=== PATIENT | male | born 1935 | race Caucasian/White ===

== ENCOUNTER → 2019-01-10 16:56 | Outpatient (CLI) | payer MEDICARE, SELFPAY ==
--- NOTE | 2019-01-10 | DI.RAD.S_ITS ---
PROCEDURE: XR SHOULDER LT MIN 2V INDICATIONS: shoulder pain TECHNIQUE: 2 views of the shoulder were acquired. COMPARISON: [facility], CR, XR SHOULDER RT MIN 2V, 01/10/2019, 17:07. FINDINGS: Bones: Mild to moderate left acromioclavicular joint and glenohumeral joint osteoarthritis is seen. No fractures or dislocations. No suspicious bony lesions. Visualized ribs appear intact. Soft tissues: No suspicious soft tissue calcifications. IMPRESSION: Mild to moderate left shoulder joint osteoarthritis. Dictated by: Diaz Renner M.D. on 01/10/2019 at 17:34 Approved by: Diaz Renner M.D. on 01/10/2019 at 17:35
--- NOTE | 2019-01-10 | DI.RAD.S_ITS ---
PROCEDURE: XR SHOULDER RT MIN 2V INDICATIONS: shoulder pain TECHNIQUE: 2 views of the shoulder were acquired. COMPARISON: None. FINDINGS: Bones: No fractures or dislocations. Moderate osteoarthritic changes are noted in the acromioclavicular joint and glenohumeral joint. No suspicious bony lesions. Visualized ribs appear intact. Soft tissues: No suspicious soft tissue calcifications. IMPRESSION: Moderate right shoulder joint osteoarthritis. No fracture or dislocation. Dictated by: Diaz Renner M.D. on 01/10/2019 at 17:34 Approved by: Diaz Renner M.D. on 01/10/2019 at 17:34
== END ==
PROVIDERS: Visit Provider Internal Medicine
DX: M25.511 Pain in right shoulder (principal); M25.512 Pain in left shoulder; M19.011 Primary osteoarthritis, right shoulder; M19.012 Primary osteoarthritis, left shoulder
CPT/HCPCS: 73030

== ENCOUNTER → 2019-06-27 14:52 | Outpatient (ROUT) | payer MEDICARE, SELFPAY ==
[2019-06-27 15:25] LABS: Alanine Aminotransferase 28 IU/L (<50); Albumin 4.4 g/dL (3.5-5.0); Albumin Globulin Ratio 1.7 (1.0-2.8); Alkaline Phosphatase 78 U/L (38-126); Aspartate Aminotransferase 33 IU/L (17-59); Bilirubin Total 0.8 mg/dL (0.2-1.3); Blood Urea Nitrogen 18 mg/dL (9-20); Calcium 10.1 mg/dL (8.4-10.2); Carbon Dioxide 32 mmol/L (22-32); Chloride 102 mmol/L (98-107); Cholesterol 149 mg/dL (140-199); Estimated Glomerular Filt Rate > 60.0 mL/min (>60); Globulin 2.6 g/dL (1.7-4.1); Glucose 103 mg/dL (80-110); HDL Cholesterol 39 mg/dL (40-60); HEMOLYSIS < 15 (0-50); LDL Cholesterol Calculated 70 mg/dL (<100); Potassium 4.2 mmol/L (3.4-5.1); Sodium 142 mmol/L (137-145); Triglycerides 201 mg/dL (35-150)
[2019-06-27 15:55] LABS: TSH w/ Reflex to FT4 1.37 uIU/mL (0.47-4.68)
== END ==
PROVIDERS: Visit Provider Internal Medicine
DX: E03.9 Hypothyroidism, unspecified (principal); I10 Essential (primary) hypertension; E78.2 Mixed hyperlipidemia
CPT/HCPCS: 80053; 80061; 84443

== ENCOUNTER → 2020-10-12 10:47 | Outpatient (CLI) | payer MEDICARE, SELFPAY ==
--- NOTE | 2020-10-12 10:50 | DI.MRI.S_ITS ---
PROCEDURE: MR THORACIC SPINE WO CON INDICATIONS: Spinal stenosis, lumbar region without neurogenic TECHNIQUE: Noncontrast sagittal T1 spine echo and T2 fast spin echo, sagittal STIR, axial T1 and T2 fast spin echo through the thoracic spine. COMPARISON: None. FINDINGS: Image quality: Excellent. Alignment and Curvature: There is normal bony alignment except for mild grade 1 anterolisthesis of C7 on T1. Minimal degenerative changes are present over the thoracic spine from T1 through T 6. At T6-T7 through T10-T11 there is a progressively greater degree of degenerative disc disease with slight posterior midline disc bulging. At T10-T11 on the sagittal imaging there is a left paramedian posterior disc herniation extruding from the disc annulus and directed cephalad. This measures 8 mm transverse, 7 mm AP, and has a craniocaudad dimension of 1.6 cm. This produces significant asymmetric left-sided spinal stenosis, deviating the thoracic cord somewhat rightward.. Bone Marrow: Marrow is of normal overall signal over the upper and middle thirds of the thoracic spine but at T11 and T12 there is mild elevated fluid signal seen on sagittal STIR imaging, series 6, image 7, and this is associated with mild elevated fluid signal within the T11-T12 disc space. Paravertebral edema is not associated. . No acute vertebral body compression fractures. Spinal Cord: Visualized spinal cord is normal in size and signal. Paraspinous Soft Tissues: No paravertebral masses. Miscellaneous: On axial images, central canal and foramina appear widely patent at all scanned levels. IMPRESSION: The degenerative changes over the upper and middle thirds of the thoracic spine are mild to moderate in overall severity without disc herniation or definite spinal/foraminal stenosis. At T10-T11 there is a moderately large disc herniation measuring approximately 7 x 8 x 16 mm in maximal AP, transverse and craniocaudad dimensions. Asymmetric left-sided symptomatology would be expected. The marrow signal at T11 and T12 is mildly elevated on STIR imaging, and there is a mild degree of elevated fluid signal within the T11-T12 disc space. As noted above there is no paravertebral edema and the appearance is considered most likely degenerative in origin. Please continue to monitor the patient for unusual symptomatology and early evidence of possible discitis/osteomyelitis which is a potential alternative etiology for the appearance described. This is considered unlikely but follow-up clinically is recommended. Dictated by: Shen Pichardo M.D. on 10/12/2020 at 13:41 Approved by: Shen Pichardo M.D. on 10/12/2020 at 13:56
--- NOTE | 2020-10-12 10:50 | DI.MRI.S_ITS ---
PROCEDURE: MR LUMBAR SPINE WO CON INDICATIONS: Spinal stenosis, lumbar region without neurogenic TECHNIQUE: Noncontrast sagittal T1 spin echo and T2 fast echo, sagittal STIR, axial T1 and T2 fast spin echo through the lumbar spine. In cases with scoliosis, additional coronal T2 fast spin echo may be performed. COMPARISON: None. FINDINGS: Image quality: Excellent. Alignment and Curvature: Dextroscoliosis. Bone Marrow: Postsurgical change related to T12-L5 posterior spinal fixation. Posterior decompression seen at the level of L1-L4 There is chronic osseous fusion of the L1-L2 and L2-L3 vertebral bodies. Severe disc degeneration at the remaining spinal levels. Mild anterior wedging of the T11 and T12 vertebral bodies without marrow edema. Spinal Cord: Conus medullaris terminates at the L1 level. Visualized cord demonstrates normal signal and size. 5 mm nodular focus seen in the region of the cauda equina at the level of L3-L4 image 10/2. Recommend further evaluation with contrast enhanced study. Paraspinous Soft Tissues: T2 hyperintense presumed right renal cyst although technically nonspecific. T10-T11 severe canal stenosis. Bilateral severe foraminal narrowing also noted with nerve root compression T11-T12 mild canal narrowing. Mild to moderate bilateral foraminal stenoses. T12-L1: Mild central canal narrowing. Partial effacement of both lateral recesses with bilaterally symmetric appearance. Mild to moderate bilateral foraminal stenosis, partially obscured by spinal hardware. L1-L2: No residual canal narrowing. Moderate bilateral foraminal stenosis although partially obscured by spinal hardware artifact. L2-L3: No canal stenosis identified. Probably mild to moderate bilateral foraminal stenosis however largely obscured by spinal hardware artifact. L3-L4: No canal stenosis. Mild bilateral foraminal narrowing although limited evaluation due to hardware artifact. L4-L5: Mild canal narrowing. Moderate bilateral foraminal stenoses. L5-S1: Mild canal narrowing. Moderate bilateral foraminal stenoses. IMPRESSION: Extensive postsurgical and degenerative changes as above. Dextroscoliosis. Severe canal stenosis seen at T10-T11. No residual high-grade stenosis seen in the lumbar spine. Nodular focus seen at the level of L3-L4 in the region of the cauda equina. Recommend further evaluation with dedicated contrast enhanced lumbar spine MRI to assess for neoplasm. At minimum, continued long-term surveillance is recommended to document stability. Numerous bilateral foraminal stenosis as detailed above by spinal level. Dictated by: Johnson Cunningham M.D. on 10/12/2020 at 15:13 Approved by: Johnson Cunningham M.D. on 10/12/2020 at 15:24
== END ==
PROVIDERS: PCP Internal Medicine; Referring Provider Internal Medicine; Visit Provider Internal Medicine
DX: M48.061 Spinal stenosis, lumbar region without neurogenic claudication (principal); M48.07 Spinal stenosis, lumbosacral region; M48.04 Spinal stenosis, thoracic region; M47.814 Spondylosis without myelopathy or radiculopathy, thoracic region; M51.24 Other intervertebral disc displacement, thoracic region; M41.9 Scoliosis, unspecified; Z98.1 Arthrodesis status
CPT/HCPCS: 72146; 72148

== ENCOUNTER 2024-05-13 15:47 | Inpatient (IN) | payer MEDICARE, SELFPAY ==
[2024-05-13 15:54] VITALS: PULSE 85; RESP 24; O2SAT 93
--- NOTE | 2024-05-13 15:59 | DI.RAD.S_ITS ---
PROCEDURE: XR HIP W PEL IF DONE LT 2V INDICATIONS: fall, hip pain TECHNIQUE: AP pelvis with lateral view(s) of the left hip. COMPARISON: None. FINDINGS: Bones: No dislocations. Pelvic ring appears intact. No suspicious bony lesions. There is a subcapital femoral neck fracture impacted and angulated, acute in appearance. A right-sided total hip arthroplasty has been performed as has prior low lumbosacral spine fusion partially visualized Soft tissues: The visualized bowel gas pattern is normal. No suspicious soft tissue calcifications. IMPRESSION: Acute subcapital femoral neck fracture on the left, prior right total hip arthroplasty. Dictated by: Shen Pichardo M.D. on 05/13/2024 at 16:34 Approved by: Shen Pichardo M.D. on 05/13/2024 at 16:36
[2024-05-13 16:00] VITALS: BP 119/60; BP 128/58; PULSE 83; PULSE 85; RESP 16; RESP 23; TEMP 36.8; O2SAT 93; O2SAT 96
--- NOTE | 2024-05-13 16:09 | ED.FALL ---
HPI - Fall General Chief Complaint: Fall Stated Complaint: Hip px, no BM x9 days Time Seen by Provider: 05/13/24 15:55 Source: patient, EMS, RN notes reviewed, old records reviewed and other (Caregiver) Mode of arrival: EMS Limitations: no limitations History of Present Illness HPI Narrative: 88-year-old male history of hypertension, dyslipidemia on an aspirin daily who presents with complaint of left hip pain. Patient had a fall after being hit by a car door falling onto his left hip proximally 9 days ago. States he was seen at [facility] like he had x-rays was told it was not broken discharged home but states he has been able to weightbear on it since then. Patient states he is pain with any sort of movement and will have spasm at the site as well. Denies any numbness or tingling. He denies other injuries denies hitting his, denies neck or back pain. Patient any chest pain or shortness of breath. No nausea or vomiting. Has not had a bowel movement at least 2 days, according to his caregiver 9 days but patient states she was not there when he had his last bowel movement. States he has been urinating regularly but had to use a container as he can not get to the bathroom. Home medications include venlafaxine, lisinopril, statin, aspirin daily. Patient has had prior right hip repair. Has also had cardiac stents in the past. Former smoker, one alcoholic drink daily, no recreational drugs. Patient lives at home with his but does have a caregiver who is at bedside. Patient's primary care is Shraddha Cabrera. Related Data Home Medications Medication Instructions Recorded Confirmed atorvastatin 40 mg tablet 40 mg PO BEDTIME 05/13/24 05/13/24 levothyroxine 88 mcg capsule 88 mcg PO DAILY 05/13/24 05/13/24 lisinopril 20 1 tab PO DAILY 05/13/24 05/13/24 mg-hydrochlorothiazide 25 mg tablet metoprolol succinate 50 mg capsule 50 mg PO DAILY 05/13/24 05/13/24 sprinkle, ext. release 24 hr venlafaxine 150 mg 150 mg PO DAILY 05/13/24 05/13/24 capsule,extended release 24 hr Allergies Allergy/AdvReac Type Severity Reaction Status Date / Time adhesive tape [ADHESIVE TAPE] AdvReac Mild ITCHY Verified 05/13/24 16:10 BUMPS Review of Systems Review of Systems ROS Unobtainable: All systems reviewed & are unremarkable except as noted in HPI and below Patient History Social History household members: spouse and caregiver Smoking Status: Former smoker alcohol intake: current Exam Narrative Exam Narrative: GENERAL: Alert and oriented x three, elderly male in mild distress HEENT: Head normocephalic, atraumatic, EOMI, pupils reactive, face symmetric, moist mucous membranes NECK: Supple, full range of motion CARDIOVASCULAR: Regular rate and rhythm without murmurs, rubs or gallops. RESPIRATORY: Breath sounds equal bilaterally, no wheezes rales or rhonchi. ABDOMEN: Soft, nontender. Normoactive bowel sounds all 4 quadrants. No guarding or rebound, rigidity, no mass : No CVA tenderness EXTREMITIES: Decreased range of motion of the left hip, patient has tenderness over the greater troch, pain with passive movement or attempted active movement. No bony tenderness of the femur knee lower extremity or foot. Left leg does look a little bit shortened in his slightly externally rotated. 2+ dorsalis pedis bilaterally. Sensation to light touch to both lower extremities., no clubbing or edema. Neurovascularly intact. NEUROLOGICAL: Cranial nerves II through XII grossly intact. Moving all extremities SKIN: Warm, dry, no petechiae, no rashes or lesions. Initial Vital Signs Initial Vital Signs: Vital Signs Pulse Rate 85 05/13/24 15:54 Respiratory Rate 24 05/13/24 15:54 Pulse Oximetry 93 05/13/24 15:54 Course Orders Ordered: Acetaminophen (Acetaminophen 325 Mg Tablet) 650 mg PO Q6H PRN PRN Reason: Fever/Mild Pain (1-3) Last Admin: 05/17/24 18:07 Dose: 650 mg Documented By: Admin: 05/17/24 06:23 Dose: 650 mg Documented By: Admin: 05/15/24 15:27 Dose: 650 mg Documented By: Admin: 05/15/24 08:00 Dose: 650 mg Documented By: Admin: 05/14/24 20:19 Dose: 650 mg Documented By: Admin: 05/14/24 12:18 Dose: 650 mg Documented By: CALVIN Atorvastatin Calcium (Atorvastatin 20 Mg Tablet) 40 mg PO BEDTIME [facility] Last Admin: 05/17/24 20:06 Dose: 40 mg Documented By: Admin: 05/16/24 21:20 Dose: 40 mg Documented By: Admin: 05/15/24 20:02 Dose: 40 mg Documented By: Admin: 05/14/24 20:19 Dose: 40 mg Documented By: Admin: 05/13/24 20:32 Dose: 40 mg Documented By: SUMA Bisacodyl (Bisacodyl 10 Mg Supp) 10 mg CA BID PRN PRN Reason: Constipation Last Admin: 05/16/24 10:07 Dose: 10 mg Documented By: Admin: 05/15/24 18:12 Dose: 10 mg Documented By: DEANNE Docusate Sodium (Docusate 100 Mg Capsule) 100 mg PO BID [facility] Last Admin: 05/17/24 20:06 Dose: 100 mg Documented By: Admin: 05/17/24 09:39 Dose: 100 mg Documented By: Admin: 05/16/24 21:19 Dose: 100 mg Documented By: Admin: 05/16/24 09:56 Dose: 100 mg Documented By: Admin: 05/15/24 20:03 Dose: 100 mg Documented By: Admin: 05/15/24 08:08 Dose: 100 mg Documented By: Admin: 05/14/24 20:19 Dose: 100 mg Documented By: SUMA Enoxaparin Sodium (Enoxaparin 40 Mg/0.4 Ml Syringe) 40 mg SUBCUT DAILY [facility] Last Admin: 05/17/24 09:39 Dose: 40 mg Documented By: Admin: 05/16/24 09:57 Dose: 40 mg Documented By: Admin: 05/15/24 08:08 Dose: 40 mg Documented By: CALVIN Hydrochlorothiazide (Hydrochlorothiazide 25 Mg Tablet) 25 mg PO DAILY [facility] Last Admin: 05/17/24 09:43 Dose: Not Given Documented By: Admin: 05/16/24 14:13 Dose: Not Given Documented By: Admin: 05/15/24 08:08 Dose: 25 mg Documented By: Admin: 05/14/24 12:17 Dose: 25 mg Documented By: CALVIN Lactated Ringer's (Lactated Ringers) 1,000 mls @ 100 mls/hr IV CONT [facility] Last Admin: 05/14/24 21:18 Dose: 100 mls/hr Documented By: Infusion: 05/14/24 21:18 Dose: Infused Documented By: Admin: 05/14/24 12:16 Dose: 100 mls/hr Documented By: CALVIN Levothyroxine Sodium (Levothyroxine 88 Mcg Tablet) 88 mcg PO 0600 [facility] Last Admin: 05/18/24 05:05 Dose: 88 mcg Documented By: Admin: 05/17/24 06:23 Dose: 88 mcg Documented By: Admin: 05/16/24 05:35 Dose: 88 mcg Documented By: Admin: 05/15/24 05:20 Dose: 88 mcg Documented By: Admin: 05/14/24 05:38 Dose: 88 mcg Documented By: SUMA Lisinopril (Lisinopril 20 Mg Tablet) 20 mg PO DAILY [facility] Last Admin: 05/17/24 09:43 Dose: Not Given Documented By: Admin: 05/16/24 14:13 Dose: Not Given Documented By: Admin: 05/15/24 08:10 Dose: 20 mg Documented By: Admin: 05/14/24 12:18 Dose: 20 mg Documented By: CALVIN Magnesium Hydroxide (Magnesium Hydroxide 30 Ml Udc) 30 ml PO Q6H PRN PRN Reason: Constipation Last Admin: 05/15/24 18:24 Dose: 30 ml Documented By: DEANNE Metoprolol Succinate (Metoprolol Er 50 Mg Tablet) 50 mg PO DAILY [facility] Last Admin: 05/17/24 09:43 Dose: Not Given Documented By: Admin: 05/16/24 09:56 Dose: 50 mg Documented By: Admin: 05/15/24 08:09 Dose: 50 mg Documented By: Admin: 05/14/24 12:17 Dose: 50 mg Documented By: CALVIN Naloxone HCl (Naloxone 0.4 Mg/Ml Vial) 0.2 mg IV Q2MIN PRN PRN Reason: Opiate Reversal Naloxone HCl (Naloxone 0.4 Mg/Ml Vial) 0.2 mg IV Q2MIN PRN PRN Reason: Opiate Reversal Ondansetron HCl (Ondansetron 4 Mg/2 Ml Inj) 4 mg IV Q4HR PRN PRN Reason: Nausea And Vomiting Ondansetron HCl (Ondansetron 4 Mg Odt) 4 mg PO Q4HR PRN PRN Reason: Nausea Polyethylene Glycol (Polyethylene Glycol 3350 17 Gm Powd.Pack) 17 gm PO DAILY PRN PRN Reason: Constipation Last Admin: 05/15/24 08:08 Dose: 17 gm Documented By: Admin: 05/14/24 20:20 Dose: 17 gm Documented By: SUMA Tramadol HCl (Tramadol 50 Mg Tablet) 50 mg PO QID PRN PRN Reason: Pain, Moderate (4-6) Last Admin: 05/17/24 18:08 Dose: 50 mg Documented By: Admin: 05/17/24 09:39 Dose: 50 mg Documented By: Admin: 05/16/24 21:18 Dose: 50 mg Documented By: Admin: 05/16/24 09:56 Dose: 50 mg Documented By: Admin: 05/15/24 23:33 Dose: 50 mg Documented By: Admin: 05/15/24 15:28 Dose: 50 mg Documented By: DEANNE Venlafaxine HCl (Venlafaxine Er 75 Mg Cap) 150 mg PO DAILY [facility] Last Admin: 05/17/24 09:40 Dose: 150 mg Documented By: Admin: 05/16/24 09:56 Dose: 150 mg Documented By: Admin: 05/15/24 08:08 Dose: 150 mg Documented By: Admin: 05/14/24 12:17 Dose: 150 mg Documented By: CALVIN Discontinued Medications Bupivacaine Liposome (Bupivacaine Liposome 266 Mg/20 Ml Vial) 266 mg INJ NOW ONE Stop: 05/14/24 08:56 Last Admin: 05/14/24 08:56 Dose: 266 mg Documented By: SULAIMAN Bupivacaine HCl 30 ml/ (Epinephrine HCl 0.15 mg) 0 ml INJ NOW ONE Stop: 05/14/24 08:57 Last Admin: 05/14/24 08:56 Dose: 60 ml Documented By: SULAIMAN Diphenhydramine HCl (Diphenhydramine 25 Mg Tablet) 25 mg PO Q6HR PRN PRN Reason: Itching Fentanyl (Fentanyl 100 Mcg/2 Ml Inj) 0 mcg IV Q5MIN PRN PRN Reason: Pain, Severe (7-10) Fentanyl (Fentanyl 100 Mcg/2 Ml Inj) 0 mcg IV Q5M PRN PRN Reason: Pain, Moderate (4-6) Hydromorphone HCl (Hydromorphone 1 Mg Inj) 0 mg IV Q5MIN PRN PRN Reason: Pain, Mild (1-3) Hydromorphone HCl (Hydromorphone 1 Mg Inj) 0 mg IV Q5MIN PRN PRN Reason: Pain, Moderate (4-6) Hydromorphone HCl (Hydromorphone 1 Mg Inj) 0 mg IV Q5MIN PRN PRN Reason: Pain, Severe (7-10) Hydromorphone HCl (Hydromorphone 0.5 Mg Inj) 0.5 mg IV Q2H PRN PRN Reason: Pain, Severe (7-10) Last Admin: 05/15/24 02:01 Dose: 0.5 mg Documented By: SUMA Hydroxyzine HCl (Hydroxyzine Hcl 25 Mg Tablet) 25 mg PO Q6H PRN PRN Reason: Nausea Last Admin: 05/14/24 21:40 Dose: 25 mg Documented By: SUMA Lactated Ringer's (Lactated Ringers) 1,000 mls @ 42 mls/hr IV NOW ONE Stop: 05/15/24 07:31 Last Infusion: 05/14/24 10:26 Dose: Infused Documented By: Admin: 05/14/24 08:54 Dose: 42 mls/hr Documented By: Infusion: 05/14/24 08:54 Dose: Infused Documented By: Admin: 05/14/24 07:44 Dose: 42 mls/hr Documented By: TILA Cefazolin Sodium/Dextrose (Ancef) 100 mls @ 200 mls/hr IV NOW ONE Stop: 05/14/24 09:30 Last Infusion: 05/14/24 08:29 Dose: Infused Documented By: Admin: 05/14/24 08:00 Dose: 200 mls/hr Documented By: GARRET Cefazolin Sodium/Dextrose (Ancef) 100 mls @ 200 mls/hr IV Q8H SAADIA Stop: 05/15/24 00:29 Last Infusion: 05/15/24 01:11 Dose: Infused Documented By: Admin: 05/15/24 00:00 Dose: 200 mls/hr Documented By: Infusion: 05/14/24 23:20 Dose: Infused Documented By: Admin: 05/14/24 17:05 Dose: 200 mls/hr Documented By: CALVIN Morphine Sulfate (Morphine 2 Mg/Ml Inj) 2 mg IV NOW ONE Stop: 05/13/24 16:06 Last Admin: 05/13/24 16:41 Dose: 2 mg Documented By: MEL Morphine Sulfate (Morphine 4 Mg/Ml Inj) 2 mg IV Q2HR PRN PRN Reason: Pain, Moderate (4-6) Last Admin: 05/14/24 23:58 Dose: 2 mg Documented By: Admin: 05/14/24 03:25 Dose: 2 mg Documented By: SUMA Ondansetron HCl (Ondansetron 4 Mg/2 Ml Inj) 4 mg IV NOW PRN PRN Reason: Nausea And Vomiting Oxycodone HCl (Oxycodone Ir 5 Mg Tablet) 5 mg PO Q3H PRN PRN Reason: Pain, Moderate (4-6) Last Admin: 05/15/24 07:59 Dose: 5 mg Documented By: Admin: 05/14/24 21:13 Dose: 5 mg Documented By: Admin: 05/14/24 15:45 Dose: 5 mg Documented By: CALVIN Oxycodone HCl (Oxycodone Ir 10 Mg Tablet) 10 mg PO Q3H PRN PRN Reason: Pain, Severe (7-10) Oxycodone/Acetaminophen (Oxycodone/Acetaminophen 5/325 Tablet) 1 tab PO [place] PRN PRN Reason: Mild or Moderate Pain Tranexamic Acid (Tranexamic Acid 1,000 Mg Vial) 2,000 mg INJ NOW ONE Stop: 05/14/24 08:58 Last Admin: 05/14/24 09:39 Dose: 1,000 mg Documented By: Admin: 05/14/24 08:15 Dose: 1,000 mg Documented By: GARRET Vital Signs Vital signs: Vital Signs - 8 hr 05/13/24 16:00 Temperature 98.3 F Pulse Rate 85 Respiratory Rate 16 Blood Pressure 119/60 Pulse Oximetry 96 Oxygen Delivery Method Room Air MDM - Fall Lab Data 05/15/24 09:15 05/14/24 13:55 Labs: Lab Results 05/13/24 Range/Units 16:17 WBC 9.4 (4.5-11.0) X10^3/uL RBC 3.89 L (4.5-5.9) X10^6/uL Hgb 13.0 L (13.5-17.5) g/dL Hct 36.9 L (41-53) % MCV 94.9 (80-100) fL MCH 33.4 (26-34) PG MCHC 35.2 (30-36) % RDW 13.8 (11.6-14.8) % Plt Count 249 (150-400) X10^3/uL Neut % (Auto) 63.6 (50-75) % Lymph % (Auto) 21.6 L (25-40) % [place] % (Auto) 11.4 (3-14) % Eos % (Auto) 2.9 (2-4) % Baso % (Auto) 0.5 (0-2) % Neut # (Auto) 6000 (0480-7535) /uL Lymph # (Auto) 2000 (7900-5900) /uL [place] # (Auto) 1100 H (0-900) /uL Eos # (Auto) 300 (0-450) /uL Baso # (Auto) 100 (0-100) /uL Sodium 132 L (137-145) mmol/L Potassium 3.9 (3.4-5.1) mmol/L Chloride 102 (98-107) mmol/L Carbon Dioxide 22 (22-32) mmol/L BUN 25 H (9-20) mg/dL Creatinine 1.09 (0.66-1.25) mg/dL Estimated GFR > 60 (>60) mL/min BUN/Creatinine Ratio 22.9 H (6-22) Glucose 124 H (80-110) mg/dL Calcium 9.6 (8.4-10.2) mg/dL Total Bilirubin 0.6 (0.2-1.3) mg/dL AST 29 (17-59) IU/L ALT 25 (<50) IU/L Alkaline Phosphatase 71 (38-126) U/L Total Protein 6.8 (6.3-8.2) g/dL Albumin 3.8 (3.5-5.0) g/dL Globulin 3.0 (1.7-4.1) g/dL Albumin/Globulin Ratio 1.3 (1.0-2.8) Imaging Data Extremity x-ray #1: Radiologist's Impression: Sudhir Beard??88??M??1935 ? Allergy/Adv: adhesive tape Close Head CT (Signed) Dick Herrera - 05/15/24 Pelvis X-Ray (Signed) HerreraDick wing - 05/14/24 Pelvis X-Ray (Signed) Herrera,Dick - 05/14/24 Hip X-Ray (Signed) Shen Pichardo - 05/13/24 Thoracic Spine MRI (Signed) Shen Pichardo - 10/12/20 Lumbar Spine MRI (Signed) Johnson Cunningham - 10/12/20 Shoulder X-Ray (Signed) Diaz Renner - 01/10/19 Shoulder X-Ray (Signed) Diaz Renner - 01/10/19 [address] [address] XRay Report Signed Patient: Sudhir Beard MR#: [id number] : 1935 Acct:[id number] Age/Sex: 88 / M Date of Service: 05/13/24 Loc: ED Accession Number: [id number] Procedure: XR hip w pel if done LT 2V Ordering Provider: Adia Carbajal D.O. PROCEDURE: XR HIP W PEL IF DONE LT 2V INDICATIONS: fall, hip pain TECHNIQUE: AP pelvis with lateral view(s) of the left hip. COMPARISON: None. FINDINGS: Bones: No dislocations. Pelvic ring appears intact. No suspicious bony lesions. There is a subcapital femoral neck fracture impacted and angulated, acute in appearance. A right-sided total hip arthroplasty has been performed as has prior low lumbosacral spine fusion partially visualized Soft tissues: The visualized bowel gas pattern is normal. No suspicious soft tissue calcifications. IMPRESSION: Acute subcapital femoral neck fracture on the left, prior right total hip arthroplasty. Dictated by: Shen Pichardo M.D. on 05/13/2024 at 16:34 Approved by: Shen Pichardo M.D. on 05/13/2024 at 16:[address] [facility] Narrative Medical decision making narrative: 88-year-old male with ground level fall approximately 9 days ago has had persistent pain since then but unable to weightbear. X-ray of left hip shows what appears to be an impacted left humeral neck fracture. Labs white count 9.4 hemoglobin of 13, prior was 15 in 2017, platelets are 249. Sodium is 132 potassium 3.9 chloride 102 CO2 22 with a BUN 25 creatinine 1.09 glucose is 124 LFTs are negative. Spoke with orthopedic surgery Dr. Guajardo, reviewed images, patient had pizza noodles at noon so we will have to push back his OR till tomorrow. Spoke with Dr. Ernandez, hospitalist who accepts for admission. Discharge Plan Departure Patient Disposition: Admitted As Inpatient Clinical Impression: Closed left hip fracture Qualifiers: Encounter type: initial encounter Qualified Code(s): S72.002A - Fracture of unspecified part of neck of left femur, initial encounter for closed fracture Admit Date/Time: 05/13/24 16:47 Admit Provider: Noé Ernandez
[2024-05-13 16:26] LABS: Add Manual Diff / Slide Review NO; Basophils Absolute Auto 100 /uL (0-100); Basophils Percent Auto 0.5 % (0-2); Eosinophils Absolute Auto 300 /uL (0-450); Eosinophils Percent Auto 2.9 % (2-4); Hematocrit 36.9 % (41-53); Lymphocytes Absolute Auto 2000 /uL (1100-4500); Lymphocytes Percent Auto 21.6 % (25-40); Mean Corpuscular HGB Conc 35.2 % (30-36); Mean Corpuscular Hemoglobin 33.4 PG (26-34); Mean Corpuscular Volume 94.9 fL (80-100); Monocytes Absolute Auto 1100 /uL (0-900); Monocytes Percent Auto 11.4 % (3-14); Neutrophils Absolute Auto 6000 /uL (1500-7000); Neutrophils Percent Auto 63.6 % (50-75); Platelet Count 249 X10^3/uL (150-400); Red Blood Cell Count 3.89 X10^6/uL (4.5-5.9); Red Cell Distribution Width 13.8 % (11.6-14.8); White Blood Cell Count 9.4 X10^3/uL (4.5-11.0)
[2024-05-13 16:30] VITALS: BP 104/70; PULSE 80; O2SAT 95
[2024-05-13 16:40] LABS: Alanine Aminotransferase 25 IU/L (<50); Albumin 3.8 g/dL (3.5-5.0); Albumin Globulin Ratio 1.3 (1.0-2.8); Alkaline Phosphatase 71 U/L (38-126); Aspartate Aminotransferase 29 IU/L (17-59); BUN Creatinine Ratio 22.9 (6-22); Bilirubin Total 0.6 mg/dL (0.2-1.3); Blood Urea Nitrogen 25 mg/dL (9-20); Calcium 9.6 mg/dL (8.4-10.2); Carbon Dioxide 22 mmol/L (22-32); Chloride 102 mmol/L (98-107); Estimated Glomerular Filt Rate > 60 mL/min (>60); Glucose 124 mg/dL (80-110); HEMOLYSIS < 15 (0-50); Potassium 3.9 mmol/L (3.4-5.1); Sodium 132 mmol/L (137-145); Total Protein 6.8 g/dL (6.3-8.2)
[2024-05-13] MEDS: MORPHINE 2 MG/ML INJ IV (16:41)
[2024-05-13 17:00] VITALS: BP 122/64; PULSE 76; RESP 22; O2SAT 93
--- NOTE | 2024-05-13 17:26 | P.HP_ITS ---
History of Present Illness History of Present Illness Date Patient Seen: 05/13/24 Chief complaint: Hip px, no BM x9 days Narrative: From ED doctor: 88-year-old male history of hypertension, dyslipidemia on an aspirin daily who presents with complaint of left hip pain. Patient had a fall after being hit by a car door falling onto his left hip proximally 9 days ago. States he was seen at [facility] sounds like he had x-rays was told it was not broken discharged home but states he has been able to weightbear on it since then. Patient states he is pain with any sort of movement and will have spasm at the site as well. Denies any numbness or tingling. He denies other injuries denies hitting his, denies neck or back pain. Patient any chest pain or shortness of breath. No nausea or vomiting. Has not had a bowel movement at least 2 days, according to his caregiver 9 days but patient states she was not there when he had his last bowel movement. States he has been urinating regularly but had to use a container as he can not get to the bathroom. Home medications include venlafaxine, lisinopril, statin, aspirin daily. Patient has had prior right hip repair. Has also had cardiac stents in the past. Former smoker, one alcoholic drink daily, no recreational drugs. Patient lives at home with his but does have a caregiver who is at bedside. Patient's primary care is Shraddha Cabrera. Additional information: As noted, the patient had x-rays at [facility] about 9 days ago which were said to be normal. The patient walked to that visit but has not walked since. Because of persistence of pain and inability to walk he presented today. Radiographs 2 demonstrate a fracture. He denies any dyspnea, leg pain or swelling. Discussed with orthopedics, 5th. He denies any chest pain, or dyspnea. There was some report about constipation, but he was not really mentioned at when I talked to him. He does confirmed DNR status. He denies any issues with nausea or poor appetite recently. He does note that he was walking for several days after his ER visit with normal x-rays of the hip. He denies a 2nd fall. [facility] Social History household members: spouse and caregiver Smoking Status: Former smoker alcohol intake: current Meds Home Medications and Allergies Home Medications Medication Instructions Recorded Confirmed Type atorvastatin 40 mg tablet 40 mg PO BEDTIME 05/13/24 05/13/24 History levothyroxine 88 mcg capsule 88 mcg PO DAILY 05/13/24 05/13/24 History lisinopril 20 1 tab PO DAILY 05/13/24 05/13/24 History mg-hydrochlorothiazide 25 mg tablet metoprolol succinate 50 mg capsule 50 mg PO DAILY 05/13/24 05/13/24 History sprinkle, ext. release 24 hr venlafaxine 150 mg 150 mg PO DAILY 05/13/24 05/13/24 History capsule,extended release 24 hr Allergies Allergy/AdvReac Type Severity Reaction Status Date / Time adhesive tape [ADHESIVE TAPE] AdvReac Mild ITCHY Verified 05/13/24 16:10 BUMPS Review of Systems Review of Systems Narrative: All else reviewed and otherwise unremarkable except as noted in the history and physical. Exam Vital Signs (past 8 hours): - 05/13/24 15:54 05/13/24 16:00 05/13/24 16:00 Temperature 98.3 F Pulse Rate 85 85 Respiratory Rate 24 16 Blood Pressure 119/60 128/58 L Pulse Oximetry 93 96 Oxygen Delivery Method Room Air 05/13/24 16:00 05/13/24 16:30 05/13/24 16:30 Temperature Pulse Rate 83 80 Respiratory Rate 23 Blood Pressure 104/70 Pulse Oximetry 93 95 Oxygen Delivery Method 05/13/24 17:00 05/13/24 17:00 Temperature Pulse Rate 76 Respiratory Rate 22 Blood Pressure 122/64 Pulse Oximetry 93 Oxygen Delivery Method Oxygen Delivery Method Room Air Narrative Exam Narrative: NAD, alert and oriented, fluent speech, calm. Normocephalic skull, EOMI, anicteric sclera, symmetric pupils. Oropharynx unremarkable, no droop. Neck supple, midline trachea, no adenopathy. Lungs clear, normal rate and effort. Heart regular, no murmur gallop or rub. Abdomen is soft, non distended and non tender. Extremities are free of edema. Skin is free of rash or lesions. Joints are not swollen or deformed. Judgment appears to be normal. Right leg is externally rotated. Objective Imaging Hip x-ray:: Radiologist's impression: IMPRESSION: Acute subcapital femoral neck fracture on the left, prior right total hip arthroplasty. Labs 05/13/24 16:17 05/13/24 16:17 Labs: Laboratory Results - last 24 hr 05/13/24 16:17 WBC 9.4 RBC 3.89 L Hgb 13.0 L Hct 36.9 L MCV 94.9 MCH 33.4 MCHC 35.2 RDW 13.8 Plt Count 249 Neut % (Auto) 63.6 Lymph % (Auto) 21.6 L [place] % (Auto) 11.4 Eos % (Auto) 2.9 Baso % (Auto) 0.5 Neut # (Auto) 6000 Lymph # (Auto) 2000 [place] # (Auto) 1100 H Eos # (Auto) 300 Baso # (Auto) 100 Sodium 132 L Potassium 3.9 Chloride 102 Carbon Dioxide 22 BUN 25 H Creatinine 1.09 Estimated GFR > 60 BUN/Creatinine Ratio 22.9 H Glucose 124 H Calcium 9.6 Total Bilirubin 0.6 AST 29 ALT 25 Alkaline Phosphatase 71 Total Protein 6.8 Albumin 3.8 Globulin 3.0 Albumin/Globulin Ratio 1.3 Assessment & Plan Assessment & Plan narrative: 1. Acute left hip fracture, present on admission and active. 2. Hypertension, present on admission stable. 3. Dyslipidemia, present on admission and stable. PLAN: -NPO midnight and operative repair on May 14. -start DVT prophylaxis asked him for surgery. -resume blood pressure medications and monitor blood pressure. Inpatient status, anticipate 2 midnights of medical care in the hospital. DNR is proxy. Time-Based Coding :: 35 min spent with patient and on the chart (including review of chart, obtaining history, exam, reviewing outside data, placing orders, documenting exam and treatment plan, and counseling patient) on 05/13. Quality MIPS - Admit I confirm the patient?s Advance Care Plan is present, Code status is documented, Surrogate decision maker is in patient?s record [If Yes, STOP here]: Yes MIPS - Meds 'Current medications' to include all prescriptions, [id number] products, herbals, cannabis/cannabidiol products, and vitamin/mineral/dietary (nutritional) supplements. I have utilized all available resources to obtain, update, or review the patient?s current medications. [If Yes, STOP here]: Yes
[2024-05-13 17:40] VITALS: BMI 31.4
[2024-05-13 17:54] VITALS: BP 124/77; PULSE 75; RESP 19; TEMP 36.9; O2SAT 98
[2024-05-13 20:00] VITALS: BP 109/72; PULSE 67; RESP 12; TEMP 36.6; O2SAT 94
[2024-05-13] MEDS: ATORVASTATIN 20 MG TABLET 40 MG PO (20:32)
[2024-05-14] VITALS (18 sets, daily range): BP systolic 93–141; BP diastolic 53–82; PULSE 71–95; RESP 11–22; TEMP 36.4–37; O2SAT 90–96; BMI 31.4
[2024-05-14] MEDS: MORPHINE 4 MG/ML INJ 2 MG IV ×2 (03:25→23:58)
[2024-05-14] MEDS: LEVOTHYROXINE 88 MCG TABLET PO (05:38)
--- NOTE | 2024-05-14 07:20 | P.CONS_ITS ---
History of Present Illness Consult details Date Patient Seen: 05/14/24 Time Patient Seen: 07:21 Chief complaint: Hip px, no BM x9 days Reason for consult: Hip fracture Requesting provider: Adia Carbajal Narrative: Sudhir as an 88-year-old male that had a fall approximately 9 days ago when he was hit by the back cardenas door of a car and knocked over. He fell onto his left side and had pain but was able to ambulate. He states the injury happened when he was trying to put a walker in the back of the car. States he sometimes uses a walker for ambulation. He was seen at [facility] for reportedly x-rays were negative. Over the last 9 days things have gotten worse home and he is become unable to ambulate. Per the patient's report he was visited by friends that he knows from the rotary including retired doctors yesterday that stated he needed to go back to the hospital and he was brought to [facility] Emergency room where he was found to have a displaced left femoral neck fracture and admitted to the hospital. He has a history of a right total hip replacement which he states was also for a hip fracture which was done approximately [address] [facility] and [place]. He also has a remote history of lumbar fusion. He states after the right hip repair he had some confusion while in the hospital but denies any history of blood clots or bleeding disorders. He states to me that he makes his own medical decisions. He reports pain in his left groin inability to ambulate. Denies fevers or chills. Denies nausea or vomiting. Meds Home Medications and Allergies Home Medications Medication Instructions Recorded Confirmed Type atorvastatin 40 mg tablet 40 mg PO BEDTIME 05/13/24 05/13/24 History levothyroxine 88 mcg capsule 88 mcg PO DAILY 05/13/24 05/13/24 History lisinopril 20 1 tab PO DAILY 05/13/24 05/13/24 History mg-hydrochlorothiazide 25 mg tablet metoprolol succinate 50 mg capsule 50 mg PO DAILY 05/13/24 05/13/24 History sprinkle, ext. release 24 hr venlafaxine 150 mg 150 mg PO DAILY 05/13/24 05/13/24 History capsule,extended release 24 hr Allergies Allergy/AdvReac Type Severity Reaction Status Date / Time adhesive tape [ADHESIVE TAPE] AdvReac Mild ITCHY Verified 05/13/24 16:10 BUMPS Review of Systems Review of Systems Narrative: Denies fevers chills nausea vomiting endorses left hip pain Per history no BM for at least several days possibly a week Exam Vital Signs (past 8 hours): Oxygen Delivery Method Room Air Oxygen Flow Rate 0 Narrative Exam Narrative: He is alert and oriented. Takes a little time on answers but is able to reply to me with thoughtful answers this morning Lungs clear to auscultation Heart regular rate and rhythm Abdomen is soft Downing in place Right lower extremity demonstrates 5/5 dorsiflexion plantar flexion no pain calf soft Left lower extremity slightly shortened and externally rotated. Demonstrates dorsiflexion plantar flexion of the ankle and wiggles toes. Palpable dorsalis pedis pulse. Calf is soft. SCDs in place on bilateral lower extremities. Pain at the left hip and groin. Objective Imaging X-ray AP pelvis and lateral left hip: My impression: Displaced left femoral neck fracture on the left. Prior right total hip replacement prior lumbar fusion with hardware Labs 05/13/24 16:17 05/13/24 16:17 Labs: Laboratory Results - last 24 hr 05/13/24 16:17 WBC 9.4 RBC 3.89 L Hgb 13.0 L Hct 36.9 L MCV 94.9 MCH 33.4 MCHC 35.2 RDW 13.8 Plt Count 249 Neut % (Auto) 63.6 Lymph % (Auto) 21.6 L [place] % (Auto) 11.4 Eos % (Auto) 2.9 Baso % (Auto) 0.5 Neut # (Auto) 6000 Lymph # (Auto) 2000 [place] # (Auto) 1100 H Eos # (Auto) 300 Baso # (Auto) 100 Sodium 132 L Potassium 3.9 Chloride 102 Carbon Dioxide 22 BUN 25 H Creatinine 1.09 Estimated GFR > 60 BUN/Creatinine Ratio 22.9 H Glucose 124 H Calcium 9.6 Total Bilirubin 0.6 AST 29 ALT 25 Alkaline Phosphatase 71 Total Protein 6.8 Albumin 3.8 Globulin 3.0 Albumin/Globulin Ratio 1.3 PFSH Social History household members: spouse and caregiver Tobacco & Substance Use Smoking Status: Former smoker alcohol intake: current Assessment & Plan Assessment and plan (1) Osteoporotic hip fracture: Qualifiers: Encounter type: initial encounter Laterality: left Qualified Code(s): M80.052A - Age-related osteoporosis with current pathological fracture, left femur, initial encounter for fracture Status: Acute (2) Closed left hip fracture: Qualifiers: Encounter type: initial encounter Qualified Code(s): S72.002A - Fracture of unspecified part of neck of left femur, initial encounter for closed fracture Status: Acute Plan The patient is an 88-year-old male with a displaced left femoral neck fracture. Likely about 9-day-old. I do not have the x-rays from the outside hospital but was possibly nondisplaced and became displaced over time. Today it is a displaced femoral neck fracture. We discussed operative treatment to help avoid the morbidity of prolonged bed rest. We discussed that operative treatment with hemiarthroplasty allowed immediate weight-bearing and mobilization. We discussed risks of surgery which includes risks of dislocation risks of infection risk of blood loss anemia nerve and vascular problems. Also risks of pneumonia DVT PE heart attack stroke paralysis and . We discussed overall the benefits of surgery or thought doubt ray the risks for hip fractures to allow mobilization. Decision for hemiarthroplasty to treat displaced left femoral neck fracture, cemented. Patient does not currently have any signs of deep venous thrombosis. Postoperative DVT prophylaxis will be Lovenox or equivalent x4 weeks. Anticipate likely care home discharge if not adequate mobilization or assistance at home. The risks and benefits of the procedure have been discussed with the patient and given the opportunity to ask questions. The risks of surgery include but are not limited to infection, dislocation, malunion, nonunion, persistence of pain, damage to nerves and blood vessels, posttraumatic arthritis, DVT, PE, cardiopulmonary complications and . The patient expressed a thorough understanding of the risks and benefits of surgery and has elected to proceed. Consent was signed High-level medical decision-making. Major orthopedic surgery. inPatient was admission required. Time-Based Coding :: [TOTAL MINUTES] spent with patient and on the chart (including review of chart, obtaining history, exam, reviewing outside data, placing orders, documenting exam and treatment plan, and counseling patient) on [DATE].
[2024-05-14] MEDS: LACTATED RINGERS 1,000 ML 42 ML IV ×2 (07:44→08:54)
--- NOTE | 2024-05-14 07:47 | PM.OP.1 ---
Operative Date/Time/Diagnoses Date of procedure: 05/14/24 Time of procedure: 07:48 Pre-op diagnosis: Left displaced femoral neck fracture Post-op diagnosis: same Procedure & Clinicians Procedure: Cemented hemiarthroplasty for left fracture CPT code 33062 Same procedure as scheduled: Yes Indications: The patient is an 88-year-old male with a displaced left femoral neck fracture. He is indicated for operative fixation. The risks and benefits of the procedure have been discussed with the patient and given the opportunity to ask questions. The risks of surgery include but are not limited to infection, dislocation, fracture, persistence of pain, damage to nerves and blood vessels, posttraumatic arthritis, DVT, PE, cardiopulmonary complications and . The patient expressed a thorough understanding of the risks and benefits of surgery and has elected to proceed. Consent was signed. Surgeon: Елена Burks [employer]active Waste Disposal Dispatcher: Lindy Ford Anesthesia Type: General and Local Operative Notes Findings: Left displaced femoral neck fracture Closure Type: primary Specimen(s): none sent Prosthetic devices, grafts, tissues, transplants, or devices: Day and nephew Synergy cemented stem size 13 Tandem unipolar head 53 Neck 0 standard Restrictor medium Centralizer 11 mm Estimated Blood Loss (mL): 200 Tourniquet time (min): 0 Procedure in detail: During the operation, the services of a physician parts room assistant were medically indicated and necessary to provide the exposure of the operative site for the surgical procedure and to maintain the limb in a proper position to carry out the operation safely and efficiently. Without a qualified business services assistant being present this would extended the operative procedure and made the procedure technically more difficult to perform. Hemiarthroplasty for femoral neck fracture CPT code 44605. Patient was seen in the preoperative area the site of surgery was marked and informed consent confirmed. This was the left hip. The patient was brought back to the operating room by the anesthesia team. Patient was positioned supine on the operative table. General anesthetic was administered. Patient was then moved into the lateral position. The hip health care analyst positioner pads were then placed. A well-padded axillary roll was placed and the arms were appropriately positioned. The affected lower extremity was prepped and draped from the ankle to the iliac crest with ChloraPrep in the standard fashion sterile drapes were placed. Formal time-out procedure was performed confirming the patient's side and site of surgery, presence of informed consent, administration of appropriate preoperative antibiotics. Hip was approached through a standard posterior approach. Dissection was carried down through the skin and subcutaneous tissues sharply through the skin and then with the Bovie through the subcutaneous tissues. The fascia jane was exposed and opened. Fascia was opened using the Bovie and the gluteus kim was spread with finger retraction. The Charnley retractor was placed. The inflamed bursa was resected. The piriformis was then identified. A Cobra retractor was placed under the gluteus medius to help expose the external rotators. The piriformis and short external rotators were tagged with a 2 Ethibond and divided of the trochanter. These were then retracted posteriorly to protect sciatic nerve. The femur was then flexed and internally rotated to present the femoral neck and the fracture. A corkscrew and a Wright were used to remove the femoral head from the acetabulum. This was measured to fit a 53 mm head. Next the femur was presented. A clean-up neck cut was made in a minimal fashion. The trial head size was trialed in the acetabulum. Attention was then turned to the femur. The canal was opened with a box cutting osteotome. This followed by the canal finer and a lateralizing Reamer. The tapered reamers were then used up to a size 13. Then broaching was sequentially done up to a size 13. Trial components were placed. The patient was stable in the position of sleep, squatting and could be put through a range of motion with 70? of internal rotation without dislocation. This was felt to be appropriate. An intraop a AP pelvis x-ray was obtained to assess component position. Final components were then selected. The final stem was a size 13. Femoral canal was prepared . The distal small restrictor was placed approximately 1 cm distal to the end of the planned implant. The bone was meticulously cleaned with pulse lavage. Canal was then packed with gauze. Two packages of cement were mixed and carefully pressurized into the femoral canal. The femoral component was then placed without difficulty. This was held in place until the cement hardened. The repeat trial reduction showed good range of motion and stability. The final head and neck were then carefully placed. 3 minute Betadine soak was completed. Local anesthetic mixed with Exparel was injected for postoperative pain control. 266 mg, 20 cc of Exparel was used. The wound was irrigated. The capsule and muscular flap was repaired with the 2. Ethibond. Next the short external rotators were repaired to the greater trochanter through drill holes in the greater trochanter using the 2.5 drill and a Offertion suture Passer. These were tied with the leg in abduction. The wound was then irrigated again. The fascia jane was closed with 0 Vicryl and the subcutaneous layer was closed with 2-0 Vicryl and the skin Stratafix Monocryl and Dermabond An Aquacel dressing was placed. An abduction pillow was placed for protection. The drapes removed and the patient was taken to the recovery room in good condition. There no immediate complications from this procedure. All counts were correct. Postoperative AP pelvis x-ray was obtained in the PACU showed appropriate alignment of the cemented hip hemiarthroplasty with no evidence of fracture. Complications: none Post-operative Condition: stable Disposition: PACU Plan for aftercare: Weightbear as tolerated with assistive devices. Posterior hip precautions x6 weeks. Lovenox 40 mg subQ daily x4 weeks. Follow up in Orthopedic Clinic in 4- 6 weeks for repeat x-rays
--- NOTE | 2024-05-14 07:48 | PM.PN.1 ---
Subjective Subjective Date Patient Seen: 05/14/24 Time Patient Seen: 12:15 Interval history: 88-year-old male history of hypertension, dyslipidemia on an aspirin daily who presents with complaint of left hip pain. Patient had a fall after being hit by a car door falling onto his left hip proximally 9 days ago. States he was seen at [facility] sounds like he had x-rays was told it was not broken discharged home but states he has been able to weightbear on it since then. Patient states he is pain with any sort of movement and will have spasm at the site as well. Denies any numbness or tingling. He denies other injuries denies hitting his, denies neck or back pain. Patient any chest pain or shortness of breath. No nausea or vomiting. Has not had a bowel movement at least 2 days, according to his caregiver 9 days but patient states she was not there when he had his last bowel movement. States he has been urinating regularly but had to use a container as he can not get to the bathroom. Home medications include venlafaxine, lisinopril, statin, aspirin daily. Patient has had prior right hip repair. Has also had cardiac stents in the past. Former smoker, one alcoholic drink daily, no recreational drugs. Patient lives at home with his but does have a caregiver who is at bedside. Patient's primary care is Shraddha Cabrera. As noted, the patient had x-rays at [facility] about 9 days ago which were said to be normal. The patient walked to that visit but has not walked since. Because of persistence of pain and inability to walk he presented today. Radiographs 2 demonstrate a fracture. He denies any dyspnea, leg pain or swelling. Discussed with orthopedics, 5th. He denies any chest pain, or dyspnea. There was some report about constipation, but he was not really mentioned at when I talked to him. He does confirmed DNR status. He denies any issues with nausea or poor appetite recently. He does note that he was walking for several days after his ER visit with normal x-rays of the hip. He denies a 2nd fall. S: The patient is seen with his Eliza, son Shen and caregiver Marine. They state that he is generally wheelchair bound due to severe knee pain. they are hoping to return home with caregiver support when medically cleared. Exam Vital Signs (past 8 hours): - 05/14/24 07:00 Temperature 98.5 F Pulse Rate 71 Respiratory Rate 19 Blood Pressure 114/64 Pulse Oximetry 94 Oxygen Delivery Method Room Air Oxygen Flow Rate 0 Narrative Exam Narrative: NAD, alert and oriented, fluent speech, calm. Normocephalic skull, EOMI, anicteric sclera, symmetric pupils. Oropharynx unremarkable, no droop. Neck supple, midline trachea, no adenopathy. Lungs clear, normal rate and effort. Heart regular, no murmur gallop or rub. Abdomen is soft, non distended and non tender. Extremities are free of edema. Skin is free of rash or lesions. Judgment appears to be normal. Right hip bandage in place, clean, dry and intact Objective Imaging X-ray AP pelvis and lateral left hip: My impression: Displaced left femoral neck fracture on the left. Prior right total hip replacement prior lumbar fusion with hardware Labs 05/13/24 16:17 05/13/24 16:17 Labs: Laboratory Results - last 24 hr 05/13/24 16:17 WBC 9.4 RBC 3.89 L Hgb 13.0 L Hct 36.9 L MCV 94.9 MCH 33.4 MCHC 35.2 RDW 13.8 Plt Count 249 Neut % (Auto) 63.6 Lymph % (Auto) 21.6 L [place] % (Auto) 11.4 Eos % (Auto) 2.9 Baso % (Auto) 0.5 Neut # (Auto) 6000 Lymph # (Auto) 2000 [place] # (Auto) 1100 H Eos # (Auto) 300 Baso # (Auto) 100 Sodium 132 L Potassium 3.9 Chloride 102 Carbon Dioxide 22 BUN 25 H Creatinine 1.09 Estimated GFR > 60 BUN/Creatinine Ratio 22.9 H Glucose 124 H Calcium 9.6 Total Bilirubin 0.6 AST 29 ALT 25 Alkaline Phosphatase 71 Total Protein 6.8 Albumin 3.8 Globulin 3.0 Albumin/Globulin Ratio 1.3 ON LICENSE OF [facility] Social History household members: spouse and caregiver Smoking Status: Former smoker alcohol intake: current Assessment & Plan Assessment & Plan narrative: 1. Acute left hip fracture, present on admission and active, status post hemiarthroplasty 05/14/2024. 2. Hypertension, present on admission stable on routine home medications 3. Dyslipidemia, present on admission and stable. 4. Hypothyroidism. Stable. 5. Anemia due to hip fracture, monitor. 6. Osteoarthritis with chronic debility, wheelchair-bound 7. DVT prophylaxis, on subcutaneous enoxaparin PLAN: -postoperative management per Orthopedics and Physical therapy -enoxaparin DVT prophylaxis -possible home with caregiver support versus SNF Inpatient status, anticipate 2 midnights of medical care in the hospital. DNR is proxy. Time-Based Coding :: [TOTAL MINUTES] spent with patient and on the chart (including review of chart, obtaining history, exam, reviewing outside data, placing orders, documenting exam and treatment plan, and counseling patient) on [DATE]. Quality VTE Deep Vein Thrombosis/Pulmonary Embolism Present on Admission: No
[2024-05-14] MEDS: CEFAZOLIN 2 GM/100 ML PREMIX 100 ML IV ×2 (08:00→17:05)
[2024-05-14] MEDS: TRANEXAMIC ACID 1,000 MG VIAL 2000 MG INJ ×2 (08:15→09:39)
--- NOTE | 2024-05-14 08:52 | SUR.OPER ---
Lateral on padded OR bed. Gel axillary roll. Arms secured on padded armboard with pillow supporting top arm. Padded hip positioner braces x4 - anterior and posterior chest and pelvis. Additional gel pad used anterior pelvis. Gel pad under bottom leg from knee to foot and secured with tape over sheet.
[2024-05-14] MEDS: BUPIVACAINE 0.25% (PF) 30 ML, EPINEPHrine 0.15 MG INJ (08:56)
[2024-05-14] MEDS: BUPIVACAINE LIPOSOME 266 MG/20 ML VIAL INJ (08:56)
--- NOTE | 2024-05-14 09:24 | DI.RAD.S_ITS ---
PROCEDURE: XR PELVIS 1-2V INDICATIONS: inter-op TECHNIQUE: Intra-operative view of the pelvis and hip acquired. COMPARISON: None. FINDINGS: Bones: Intraoperative devices prior to placement of arthroplasty prostheses are in expected positions. No fractures or suspicious bony lesions. Soft tissues: Overlying surgical retractors are present, along with other intraoperative changes. IMPRESSION: Left hip arthroplasty in progress. Right hip arthroplasty good position. Approved by: Dick Herrera M.D. on 05/14/2024 at 9:29
--- NOTE | 2024-05-14 10:27 | DI.RAD.S_ITS ---
PROCEDURE: XR PELVIS 1-2V INDICATIONS: hip vinay TECHNIQUE: 1 view of the lower pelvis acquired. COMPARISON: [facility], , XR PELVIS 1-2V, 05/14/2024, 9:10. FINDINGS: Bones: Patient is status post left hip arthroplasty, with hardware components in expected positions. The hip joint appears congruent. The visualized bony structures appear intact. A para stable right hip arthroplasty Soft tissues: Overlying postoperative changes are noted. No suspicious soft tissue densities. IMPRESSION: Expected post-operative appearance of a hip arthroplasty. Approved by: Dick Herrera M.D. on 05/14/2024 at 9:51
[2024-05-14] MEDS: LACTATED RINGERS 1,000 ML 100 ML IV ×2 (12:16→21:18)
[2024-05-14] MEDS: VENLAFAXINE ER 75 MG CAP 150 MG PO (12:17)
[2024-05-14] MEDS: METOPROLOL ER 50 MG TABLET PO (12:17)
[2024-05-14] MEDS: hydroCHLOROthiazide 25 MG TABLET PO (12:17)
[2024-05-14] MEDS: ACETAMINOPHEN 325 MG TABLET 650 MG PO ×2 (12:18→20:19)
[2024-05-14] MEDS: lisinopriL 20 MG TABLET PO (12:18)
--- NOTE | 2024-05-14 13:13 | PC.NURSE ---
Pt returned from PACU at 1115, drowsy but arousable, VSS on 3L NC. C/o tightness to L hip but no pain. Aquacel dressing to L hip c/d/i. Lungs CTA, bowel sounds hypoactive, CMS+ good pulses to bilat LE. Patient and family at bedside re-oriented to room and call light. Bed in low position, call light within reach, SCDs on.
--- NOTE | 2024-05-14 14:04 | CM.DPNOTE ---
DCP Planning Note- Chart reviewed and discuss in rounds, patient possible need for SNF. Surgery done today, patient back to room but still confused post sedation, no family present. Left VM with spouse to discuss plan. PT eval ordered, pending. Will need PASSR done if SNF is indicated. KENZIE Coto
[2024-05-14 14:12] LABS: BUN Creatinine Ratio 19.8 (6-22); Blood Urea Nitrogen 26 mg/dL (9-20); Calcium 9.7 mg/dL (8.4-10.2); Carbon Dioxide 26 mmol/L (22-32); Chloride 99 mmol/L (98-107); Estimated Glomerular Filt Rate 53 mL/min (>60); Glucose 140 mg/dL (80-110); HEMOLYSIS < 15 (0-50); Sodium 132 mmol/L (137-145)
--- NOTE | 2024-05-14 15:01 | PT.IIE ---
Current Diagnoses Age-related osteoporosis with current pathological fracture, left femur, initial encounter for fracture (05/13/24) Fracture of unspecified part of neck of left femur, initial encounter for closed fracture (05/13/24) Surgery Performed Operation Date: 05/14/24 08:00 Actual Procedures p Hip Hemiarthroplasty Lupillo - Елена Burks MD Physical Therapy Inpatient Evaluation/Re-Eval M1 PT/OT-IP Prior Functional Status Start: 05/14/24 16:06 Freq: NEEDED Status: Active Protocol: Document 05/14/24 15:01 AB (Rec: 05/14/24 16:22 AB [id number]) Medical Review Prior Functional Status Medical History Reviewed Yes Communication able to make needs known but with memory issues Mobility and Gait pt stated that he mostly stays on his power w/c but able ambulate some with his caregivers using a 4WW. stated that he is able to stand pivot transfer by himself without AD to get in/out of the power w/c Social History Household Members spouse,caregiver Living Arrangements House Number of Floors (Floors) One Floor Number of Stairs To Enter/Railing? 5 steps B rails to enter Home Environment Standard Height Toilet,Walk in Shower Home Equipment Front Wheel Walker,Four Wheel Walker,Shower Seat with Backrest,Hand Held Shower,Grab Bars Near Toilet,Grab Bars In Shower Additional Social History Comment pt stated that he has caregivers that come in to assist but does not remember how often M2 PT-IP Current Condition Start: 05/14/24 16:06 Freq: NEEDED Status: Active Protocol: Document 05/14/24 15:01 AB (Rec: 05/14/24 16:22 AB [id number]) Physical Therapy Current Condition Current Condition Evaluation Date 05/14/24 Treatment Diagnosis L femoral neck fx s/p L hip hemiarthroplasty; difficulty in walking Onset Date 05/13/24 M3 PT-IP Subjective Start: 05/14/24 16:06 Freq: NEEDED Status: Active Protocol: Document 05/14/24 15:01 AB (Rec: 05/14/24 16:22 AB [id number]) Subjective Physical Therapy Visit Type Type Initial Evaluation Visit Start Time 15:01 Visit Stop Time 16:03 Number of BANK OFFICER Visits 0 Physical Therapy Visit Comments Patient Comments agreeable to do PT Therapy Pain Assessment Pain When Pain Assessed At Rest Pain Present Pain Present Pain Reported Location left hip Scale Used pain scale unable to state but increases with movement Pain Management Techniques Apply Cold,Distraction, Modification of Treatment,Re- positioning,Timing of Activity with Medications M4 PT-IP Mobility and Gait Start: 05/14/24 16:06 Freq: NEEDED Status: Active Protocol: Document 05/14/24 15:01 AB (Rec: 05/14/24 16:22 AB [id number]) PT-Bed Mobility Assessment Supine to Sit Supine to Sit Maximum Assistance,2 Person Assistance,Head of Bed Elevated,Bedrails Sit to Supine Sit to Supine Total Assistance,2 Person Assistance,Head of Bed Elevated,Bedrails Scooting Scooting to Edge of Bed Dependent PT-Transfer Assessment Sit to and From Stand Sit to and from Stand Maximum Assistance,2 Person Assistance,Use of Upper Extremities Equipment Transfer Assistive Device Gait Belt,Front Wheeled Walker Orthotic/Prosthetic Devices or Brace: No Comments Mobility Comments pt supine in bed and agreeable to do PT. obtained PLOF and home setup. pt with cognitive and memory issues. does not recall where he is even after informing him a few minutes prior. educated pt on L hip posterior precautions and post -op folder provided. pt unable to recall. pt completed supine to sit max A x 2 and max cues using bed rail to assist with HOB elevated. pt presents with increase guarding and resistance and with difficulty following directions needing repeated instructions and cues . pt needing max A x 2 for sitting balance for initial sitting with increase resistance due to c/o hip pain . pt with increase pushing trunk backwards. total A for scooting and positioning pt on EOB and able to sit min A afterwards. pt completed sit to stand x 4 reps requiring max A x 2 and max cues. unable to stand long enough to transfer and with (+) L knee buckling. pt sat on EOB. total A x 2 for scooting to the HOB. assisted pt back to bed total A x 2 and max cues. positioned pt on the bed total A x 2. call light and table placed within reach. Gait Assessment Comments Gait Comments unable at this time PT-Balance Assessment Sitting Balance and Reactions Static Sitting Balance Ability Fair Dynamic Sitting Balance Ability Poor Standing Balance and Reactions Static Standing Balance Ability Poor Dynamic Standing Balance Ability Poor Device Used FWW M5 PT-IP Objective Assessments Start: 05/14/24 16:06 Freq: NEEDED Status: Active Protocol: Document 05/14/24 15:01 AB (Rec: 05/14/24 16:22 AB [id number]) Orientation Orientation/Cognition Level of Alertness Confusional State Orientation Name Language Function Ability Hard of Hearing Safety Awareness Decreased Safety Awareness Memory Description Short Term Impaired,Public Safety Director Impaired Gross Range of Motion Lower Extremity ROM Assessment Within Functional Limits Strength Lower Extremity Strength Assessment Left Impaired Hip 3-/5 Knee 3+/5 Sensation Assessment Sensation Gross Sensation WNL Muscle Tone Muscle Tone WNL Yes M6 PT-IP Treatment Start: 05/14/24 16:06 Freq: NEEDED Status: Active Protocol: Document 05/14/24 15:01 AB (Rec: 05/14/24 16:22 AB [id number]) Physical Therapy Treatment Exercises Exercises Heel Slides Education Education Provided Precautions,Weight Bearing Status,Post-Op Packet,Safety M7 PT-IP Assessment and Plan Start: 05/14/24 16:06 Freq: NEEDED Status: Active Protocol: Document 05/14/24 15:01 AB (Rec: 05/14/24 16:22 AB [id number]) PT Summary Assessment and Plan Potential Rehabilitation Potential Fair Status of Condition at Evaluation Evolving Summary Impairments Pain,ROM,Strength,Balance, Coordination,Sensation,Tone, Cognition,Bed Mobility, Transfers,Gait,Activity Tolerance Assessment Summary pt is an 88 y/o M s/p fall and sustain a L femoral neck fx and underwent L hip hemiarthroplasty. pt with L hip posterior precautions and is WBAT. pt requiring max A x 2 to total A x 2 with bed mobility and sit to stand. pt unable to stand long enough to transfers or ambulate. recommending a mechanical lift transfer with nursing staff. pt will benefit from SNF rehab. Goals Bed Mobility Goal Minimal Assistance Transfer Goal Minimal Assistance,Front Wheeled Walker Gait Goal Minimal Assistance,Front Wheel Walker Gait Distance 20 Other Goals improve bed mobility, transfers. ambulation using FWW 100 ft SBA up/down 5 steps B rails SBA Days to Meet Goals 10 Frequency of Treatment Other frequency 1-2 x /week Treatment Plan Physical Therapy Treatment Plan Bed Mobility Training,Transfer Training,Gait Training, Therapeutic Exercise,Balance Retraining,Post Op Education, Discharge Planning,Hot or Cold Pack,Neuromuscular Re-ed, Coordination Retraining,Manual Therapy Precautions Posterior Hip Precautions No Hip Flexion > 90 degrees,No Hip Internal Rotation,No Hip Adduction Weight Bearing Status Weight Bearing Status Weight Bear as Tolerated Allowed Weight Bearing Amount (enter % LLE WBAT or #) (%) Recommendations To Nursing Amount of Assist Needed Mechanical Lift Discharge Recommendations PT Discharge Recommendations SNF Rehab Transportation Needs at Discharge Wheelchair/Cabulance,Stretcher /Ambulance
[2024-05-14] MEDS: OXYCODONE IR 5 MG TABLET PO ×2 (15:45→21:13)
[2024-05-14] MEDS: ATORVASTATIN 20 MG TABLET 40 MG PO (20:19)
[2024-05-14] MEDS: DOCUSATE 100 MG CAPSULE PO (20:19)
[2024-05-14] MEDS: polyethylene glycoL 3350 17 GM POWD.PACK PO (20:20)
[2024-05-14] MEDS: hydrOXYzine HCL 25 MG TABLET PO (21:40)
[2024-05-15] MEDS: CEFAZOLIN 2 GM/100 ML PREMIX 100 ML IV
[2024-05-15] MEDS: HYDROMORPHONE 0.5 MG INJ IV (02:01)
[2024-05-15] MEDS: LEVOTHYROXINE 88 MCG TABLET PO (05:20)
[2024-05-15 06:00] VITALS: BP 113/68; PULSE 66; RESP 16; TEMP 36.6; O2SAT 97
[2024-05-15 07:00] VITALS: BP 120/65; PULSE 71; RESP 16; TEMP 36.8; O2SAT 91
--- NOTE | 2024-05-15 07:26 | PM.PN.1 ---
Subjective Subjective Date Patient Seen: 05/15/24 Time Patient Seen: 12:15 Interval history: 88-year-old male history of hypertension, dyslipidemia on an aspirin daily who presents with complaint of left hip pain. Patient had a fall after being hit by a car door falling onto his left hip proximally 9 days ago. States he was seen at [facility] sounds like he had x-rays was told it was not broken discharged home but states he has been able to weightbear on it since then. Patient states he is pain with any sort of movement and will have spasm at the site as well. Denies any numbness or tingling. He denies other injuries denies hitting his, denies neck or back pain. Patient any chest pain or shortness of breath. No nausea or vomiting. Has not had a bowel movement at least 2 days, according to his caregiver 9 days but patient states she was not there when he had his last bowel movement. States he has been urinating regularly but had to use a container as he can not get to the bathroom. Home medications include venlafaxine, lisinopril, statin, aspirin daily. Patient has had prior right hip repair. Has also had cardiac stents in the past. Former smoker, one alcoholic drink daily, no recreational drugs. Patient lives at home with his but does have a caregiver who is at bedside. Patient's primary care is Shraddha Cabrera. As noted, the patient had x-rays at [facility] about 9 days ago which were said to be normal. The patient walked to that visit but has not walked since. Because of persistence of pain and inability to walk he presented today. Radiographs 2 demonstrate a fracture. He denies any dyspnea, leg pain or swelling. Discussed with orthopedics, 5th. He denies any chest pain, or dyspnea. There was some report about constipation, but he was not really mentioned at when I talked to him. He does confirmed DNR status. He denies any issues with nausea or poor appetite recently. He does note that he was walking for several days after his ER visit with normal x-rays of the hip. He denies a 2nd fall. S: The patient is mildly confused overnight, stating that eyes and however is president and that it is 1951. He denies chest pain, shortness of breath or other focal symptoms or concerns. Exam Vital Signs (past 8 hours): - 05/15/24 06:00 Temperature 98 F Pulse Rate 66 Respiratory Rate 16 Blood Pressure 113/68 Pulse Oximetry 97 Oxygen Flow Rate 0 Oxygen Delivery Method Room Air Oxygen Flow Rate 0 Narrative Exam Narrative: NAD, alert and oriented, fluent speech, calm, stating the day, date, year and location incorrectly Normocephalic skull, EOMI, anicteric sclera, symmetric pupils. Oropharynx unremarkable, no droop. Neck supple, midline trachea, no adenopathy. Lungs clear, normal rate and effort. Heart regular, no murmur gallop or rub. Abdomen is soft, non distended and non tender. Extremities are free of edema. Skin is free of rash or lesions. Judgment and insight impaired Right hip bandage in place, clean, dry and intact Objective Labs 05/13/24 16:17 05/14/24 13:55 Labs: Laboratory Results - last 24 hr 05/14/24 13:55 Sodium 132 L Potassium 5.0 Chloride 99 Carbon Dioxide 26 BUN 26 H Creatinine 1.31 H Estimated GFR 53 L BUN/Creatinine Ratio 19.8 Glucose 140 H Calcium 9.7 PFSH Social History household members: spouse and caregiver Smoking Status: Former smoker alcohol intake: current Assessment & Plan Assessment & Plan narrative: 1. Acute left hip fracture, present on admission and active, status post hemiarthroplasty 05/14/2024. 2. Hypertension, present on admission stable on routine home medications 3. Dyslipidemia, present on admission and stable. 4. Hypothyroidism. Stable. 5. Anemia due to hip fracture, monitor. 6. Osteoarthritis with chronic debility, wheelchair-bound 7. Postoperative delirium, suspect underlying mild cognitive impairment. Minimize opioids and monitor. 8. DVT prophylaxis, on subcutaneous enoxaparin PLAN: -postoperative management per Orthopedics and Physical therapy -enoxaparin DVT prophylaxis -discontinue opioids, hydroxyzine and diphenhydramine -possible home with caregiver support versus SNF Inpatient status, anticipate 2 midnights of medical care in the hospital. DNR is proxy. Time-Based Coding :: [TOTAL MINUTES] spent with patient and on the chart (including review of chart, obtaining history, exam, reviewing outside data, placing orders, documenting exam and treatment plan, and counseling patient) on [DATE]. Quality VTE Deep Vein Thrombosis/Pulmonary Embolism Present on Admission: No IH PROFEE Charge codes Subsequent inpatient/observation care: [id number]
[2024-05-15] MEDS: OXYCODONE IR 5 MG TABLET PO (07:59)
[2024-05-15] MEDS: ACETAMINOPHEN 325 MG TABLET 650 MG PO ×2 (08:00→15:27)
[2024-05-15] MEDS: VENLAFAXINE ER 75 MG CAP 150 MG PO (08:08)
[2024-05-15] MEDS: ENOXAPARIN 40 MG/0.4 ML SYRINGE SUBCUT (08:08)
[2024-05-15] MEDS: hydroCHLOROthiazide 25 MG TABLET PO (08:08)
[2024-05-15] MEDS: DOCUSATE 100 MG CAPSULE PO ×2 (08:08→20:03)
[2024-05-15] MEDS: polyethylene glycoL 3350 17 GM POWD.PACK PO (08:08)
[2024-05-15 08:09] VITALS: BP 120/65; PULSE 71
[2024-05-15] MEDS: METOPROLOL ER 50 MG TABLET PO (08:09)
[2024-05-15 08:10] VITALS: BP 120/65; PULSE 71
[2024-05-15] MEDS: lisinopriL 20 MG TABLET PO (08:10)
[2024-05-15 09:23] LABS: Hematocrit 32.5 % (41-53); Hemoglobin 11.3 g/dL (13.5-17.5)
--- NOTE | 2024-05-15 10:20 | DI.CT.S_ITS ---
PROCEDURE: CT HEAD/BRAIN WO/W CON INDICATIONS: fall, delirium,lung cancer TECHNIQUE: 4.5 mm thick angled axial sections acquired from the foramen magnum to the vertex before and after the administration of intravenous contrast, with coronal and sagittal reformats. For radiation dose reduction, the following was used: automated exposure control, adjustment of mA and/or kV according to patient size. COMPARISON: None. FINDINGS: Image quality: Excellent. CSF Spaces: Basal cisterns are patent. No extra-axial fluid collections. Ventricles are normal in size and shape. Brain: No midline shift. No intracranial bleeds or masses. No abnormal intracranial enhancement. Gonzalez-white interface appears normal. Moderate cerebral and cerebellar volume loss with multifocal white matter chronic ischemic change noted. Atherosclerotic calcification noted associated with cavernous segments of both internal carotid arteries. Skull and face: Calvarium and visualized facial bones appear intact, without suspicious lesions. Sinuses: Visualized sinuses and mastoids are clear. IMPRESSION: Atrophy and chronic ischemic change without acute hemorrhage or mass lesion. No abnormal enhancement. No metastatic disease. Approved by: Dick Herrera M.D. on 05/15/2024 at 10:45
--- NOTE | 2024-05-15 10:29 | PT-IP ANOTE ---
PT reviewed chart and discussed pt in rounds. Pt with some delirium today per rounds. Checked on pt who is with nsg and he presents with some confusion and pain, nsg assisting pt with bed bath. Updated precautions in PT worklist with Dr. Burks's luisa from 05/14 at 10:55. Con't PT frequency 1-2x/week. Pt is 88 y/o male s/p hip fracture and also with lung CA per rounds. Disposition location to be determined. He is currently max 2 assistance.
[2024-05-15 13:00] VITALS: BP 96/49; PULSE 77; RESP 12; TEMP 36.8; O2SAT 92
--- NOTE | 2024-05-15 13:02 | CM.DPC ---
DCP Cont. Reviewed EMR and team rounds for status updates. Pt has remained delirious today, Hospitalist is working on decreasing opiates in order to improve mental status. Confirm plan for SNF vs. Hospice once pt has stabilized. Continuing to montior.
--- NOTE | 2024-05-15 15:08 | PM.PNPO.1 ---
Subjective Subjective Date Patient Seen: 05/15/24 Time Patient Seen: 15:08 Interval history: Pt resting in bed, awakens easily to voice. Confused, somnolent; doesn't follow commands. Exam Vital Signs (past 8 hours): - 05/15/24 08:00 05/15/24 08:09 05/15/24 08:10 Pulse Rate 71 71 Blood Pressure 120/65 120/65 Oxygen Delivery Method Room Air Oxygen Delivery Method Room Air Oxygen Flow Rate 0 Narrative Exam Narrative: Unable to check strength or dressing d/t pt not following commands. Calf soft and compressible. Objective Labs 05/15/24 09:15 05/14/24 13:55 Labs: Laboratory Results - last 24 hr 05/15/24 09:15 Hgb 11.3 L Hct 32.5 L PFSH Social History household members: spouse and caregiver Smoking Status: Former smoker alcohol intake: current Assessment & Plan Post-op Assessment and plan (1) Status post hip hemiarthroplasty: Assessment and Plan narrative: 1) PT - WBAT to LLE. Posterior hip precautions x 6 weeks. 2) Continue enoxaparin 40mEq daily x 4 weeks postop for VTE prophylaxis. 3) Remove dressing in 10-14 days postop, sooner if it becomes saturated inside. F/u in office in 4-6 weeks for repeat xrays. 4) Disposition, VTE prophylaxis, pain control per hospitalist service. Postoperative Procedures: Procedures Operation Date: 05/14/24 08:00 Actual Procedure Side Surgeon p Hip Hemiarthroplasty Lupillo Елена Burks MD Postoperative day: 1 Quality VTE Deep Vein Thrombosis/Pulmonary Embolism Present on Admission: No
[2024-05-15] MEDS: TRAMADOL 50 MG TABLET PO ×2 (15:28→23:33)
[2024-05-15] MEDS: BISACODYL 10 MG SUPP PR (18:12)
[2024-05-15] MEDS: MAGNESIUM HYDROXIDE 30 ML UDC PO (18:24)
[2024-05-15 20:00] VITALS: BP 120/56; PULSE 78; RESP 16; TEMP 36.5; O2SAT 92
[2024-05-15] MEDS: ATORVASTATIN 20 MG TABLET 40 MG PO (20:02)
[2024-05-16] MEDS: LEVOTHYROXINE 88 MCG TABLET PO (05:35)
--- NOTE | 2024-05-16 06:22 | PM.PNPO.1 ---
Subjective Subjective Date Patient Seen: 05/16/24 Time Patient Seen: 07:07 Interval history: Pt has lung ca, and d/t confusion, CT head was performed yesterday to r/o metastases. No mets or acute processes identified. Pt again minimally responsive or cooperative w/ exam. Exam Vital Signs (past 8 hours): Oxygen Delivery Method Room Air Oxygen Flow Rate 0 Narrative Exam Narrative: 5/5 EHL on left, otherwise does not move leg. Unable to evaluate dressing. Calf soft and compressible, LLE warm throughout. Objective Labs 05/15/24 09:15 05/14/24 13:55 Labs: Laboratory Results - last 24 hr 05/15/24 09:15 Hgb 11.3 L Hct 32.5 L PFSH Social History household members: spouse and caregiver Smoking Status: Former smoker alcohol intake: current Assessment & Plan Post-op Assessment and plan (1) Status post hip hemiarthroplasty: Assessment and Plan narrative: 1) PT - WBAT to LLE. Posterior hip precautions x 6 weeks. 2) Continue enoxaparin 40mEq daily x 4 weeks postop for VTE prophylaxis. 3) Remove dressing in 10-14 days postop, sooner if it becomes saturated inside. F/u in office in 4-6 weeks for repeat xrays. 4) Disposition, VTE prophylaxis, pain control per hospitalist service. Postoperative Procedures: Procedures Operation Date: 05/14/24 08:00 Actual Procedure Side Surgeon p Hip Hemiarthroplasty Lupillo Елена Burks MD Postoperative day: 2 Quality VTE Deep Vein Thrombosis/Pulmonary Embolism Present on Admission: No
[2024-05-16 07:00] VITALS: BP 121/54; PULSE 80; RESP 16; TEMP 36.6; O2SAT 90
--- NOTE | 2024-05-16 07:37 | P.PN_ITS ---
Subjective Subjective Interval history: S: The patient is mildly confused and not oriented to place or year. He is in no distress. Question of Hospice, he remains a 2 person assist and is confused, with lung cancer. Need to get more details on his diagnosis of lung cancer. I called his , Curtis. There was no picking machine operator, so I left a voicemail and requested a call back to discuss both level of care and the status of his diagnosis of possible lung cancer. Exam Vital Signs (past 8 hours): Oxygen Delivery Method Room Air Oxygen Flow Rate 0 Narrative Exam Narrative: NAD, alert and calm. Fluent speech. He was not oriented to year or place. Lungs are clear, normal rate and effort. Heart is regular, no murmur gallop or rub. Abdomen is soft, non distended. Extremities are free of edema. Objective Labs 05/15/24 09:15 05/14/24 13:55 Labs: Laboratory Results - last 24 hr 05/15/24 09:15 Hgb 11.3 L Hct 32.5 L PFSH Social History household members: spouse and caregiver Smoking Status: Former smoker alcohol intake: current Assessment & Plan Assessment & Plan narrative: 1. Acute left hip fracture, present on admission and active, status post hemiarthroplasty 05/14/2024. 2. Hypertension, present on admission stable on routine home medications 3. Dyslipidemia, present on admission and stable. 4. Hypothyroidism. Stable. 5. Anemia due to hip fracture, monitor. 6. Osteoarthritis with chronic debility, wheelchair-bound 7. Postoperative delirium, suspect underlying mild cognitive impairment. Minimize opioids and monitor. 8. Possible history of lung cancer, details to follow. DVT prophylaxis, on subcutaneous enoxaparin PLAN: -postoperative management per Orthopedics and Physical therapy -enoxaparin DVT prophylaxis -discontinue opioids, hydroxyzine and diphenhydramine -possible home with caregiver support versus SNF -we will discuss level of care and possibility of hospice at home as well. Inpatient status, anticipate at least 2 midnights of medical care in the hospital. DNR is proxy. Time-Based Coding :: [TOTAL MINUTES] spent with patient and on the chart (including review of chart, obtaining history, exam, reviewing outside data, placing orders, documenting exam and treatment plan, and counseling patient) on [DATE]. Quality VTE Deep Vein Thrombosis/Pulmonary Embolism Present on Admission: No
[2024-05-16] MEDS: VENLAFAXINE ER 75 MG CAP 150 MG PO (09:56)
[2024-05-16] MEDS: DOCUSATE 100 MG CAPSULE PO ×2 (09:56→21:19)
[2024-05-16] MEDS: TRAMADOL 50 MG TABLET PO ×2 (09:56→21:18)
[2024-05-16] MEDS: METOPROLOL ER 50 MG TABLET PO (09:56)
[2024-05-16] MEDS: ENOXAPARIN 40 MG/0.4 ML SYRINGE SUBCUT (09:57)
[2024-05-16] MEDS: BISACODYL 10 MG SUPP PR (10:07)
--- NOTE | 2024-05-16 10:30 | PT-IP ANOTE ---
Discussed pt in rounds and MD reports pt con't with confusion and recommends hold therapies today.
--- NOTE | 2024-05-16 10:40 | OT.IPNOTE ---
Discussed patient during rounds. Pt may be appropriate for palliative/comfort care. daycare worker and MD plan to talk with family today about their wishes. Will hold per MD till further plans are made. Will check back tomorrow.
--- NOTE | 2024-05-16 14:18 | PC.NURSE ---
Patient does not want to participate in being turned or cleaned up, he yells out and is confused. He does not understand that he is in the hospital or that he fell down and hurt his hip. Patient given a suppository and he has had at least a small bowel movement with more to come. Given tramadol for pain and discomfort, he ate about 50% of his lunch and is resting now. Aquacel to l.hip is cdi. Resting comfortably.
--- NOTE | 2024-05-16 16:12 | CM.DANOTE ---
DCP Cont Patient discussed in multidisciplinary rounds. Dr Ernandez feels patient would benefit from hospice services at home with sp and caregiver(s). Dr Ernandez attempting goals of care conversation with spouse today. Attempted contact with spouse and/or caregiver today. LM for spouse Eliza on home number requesting CB. Discussed contact list with RN and TOW MOTOR DRIVER; a grandson phoned today, no name or contact information left. Care team waiting on communication from spouse, caregiver and/or other family that spouse designates (?) to discuss plan of care and discharge plan options. CM team following along closely. SHAREE Discharge Planning/Care Management CM Discharge Assessment Start: 05/16/24 16:06 Freq: Status: Active Protocol: Document 05/16/24 16:06 SHAREE (Rec: 05/16/24 16:12 SHAREE [id number]) Discharge Planning Assessment Assigned Dental Surgeon KENZIE Ching DPOA/Assigned Designee Name Eliza Beard, spouse Contact Information [phone] Advance Directives? No History Provided By Medical Record Prior Living Arrangements House Household Members spouse,caregiver Type of transporation used prior to Relies on Others admit Independent with ADL's No Is patient alert and oriented? No Needs Assistance With Bathing,Grooming,Meal Prep, Toileting,Managing Medications ,Home Chores / Shopping Caregiver for Another No DME Already Rented / Owned Wheelchair,FWW / Walker Barriers to Discharge Yes Comment Discharge plan needs to be discussed with spouse, caregiver or alt family member once found
[2024-05-16 20:00] VITALS: BP 121/52; PULSE 78; RESP 18; TEMP 36.8; O2SAT 94
[2024-05-16] MEDS: ATORVASTATIN 20 MG TABLET 40 MG PO (21:20)
[2024-05-17] MEDS: ACETAMINOPHEN 325 MG TABLET 650 MG PO ×2 (06:23→18:07)
[2024-05-17] MEDS: LEVOTHYROXINE 88 MCG TABLET PO (06:23)
--- NOTE | 2024-05-17 07:17 | PM.PN.1 ---
Subjective Subjective Interval history: S: He was doing well today. Less confusion. His left hip pain is improved overall. He was sitting up in the chair, and denies any dyspnea. Exam Vital Signs (past 8 hours): Oxygen Delivery Method Room Air Oxygen Flow Rate 0 Narrative Exam Narrative: NAD, alert and oriented. Fluent speech. Lungs are clear, normal rate and effort. Heart is regular, no murmur gallop or rub. Abdomen is soft, non distended. Extremities are free of edema. Objective Labs 05/15/24 09:15 05/14/24 13:55 PFSH Social History household members: spouse and caregiver Smoking Status: Former smoker alcohol intake: current Assessment & Plan Assessment & Plan narrative: 1. Acute left hip fracture, present on admission and active, status post hemiarthroplasty 05/14/2024. 2. Hypertension, present on admission stable on routine home medications 3. Dyslipidemia, present on admission and stable. 4. Hypothyroidism. Stable. 5. Anemia due to hip fracture, monitor. 6. Osteoarthritis with chronic debility, wheelchair-bound 7. Postoperative delirium, suspect underlying mild cognitive impairment. New and improving. 8. Possible history of lung cancer, details to follow. DVT prophylaxis, on subcutaneous enoxaparin PLAN: -monitor mental status, this is improving. -continue postoperative care for hip repair. -discussed level care and discharge planning with , she apparently comes up in the afternoons. We will look for her today. Inpatient status, anticipate at least 2 midnights of medical care in the hospital. DNR is proxy. Time-Based Coding :: [TOTAL MINUTES] spent with patient and on the chart (including review of chart, obtaining history, exam, reviewing outside data, placing orders, documenting exam and treatment plan, and counseling patient) on [DATE]. Quality VTE Deep Vein Thrombosis/Pulmonary Embolism Present on Admission: No
[2024-05-17] MEDS: DOCUSATE 100 MG CAPSULE PO ×2 (09:39→20:06)
[2024-05-17] MEDS: TRAMADOL 50 MG TABLET PO ×2 (09:39→18:08)
[2024-05-17] MEDS: ENOXAPARIN 40 MG/0.4 ML SYRINGE SUBCUT (09:39)
[2024-05-17] MEDS: VENLAFAXINE ER 75 MG CAP 150 MG PO (09:40)
[2024-05-17 09:43] VITALS: BP 97/56; PULSE 87
[2024-05-17 10:00] VITALS: BP 97/56; PULSE 87; RESP 18; TEMP 36.3; O2SAT 97
--- NOTE | 2024-05-17 10:36 | PT.IPTN ---
Current Diagnoses Age-related osteoporosis with current pathological fracture, left femur, initial encounter for fracture (05/13/24) Fracture of unspecified part of neck of left femur, initial encounter for closed fracture (05/13/24) Presence of unspecified artificial hip joint (05/13/24) Surgery Performed Operation Date: 05/14/24 08:00 Actual Procedures p Hip Hemiarthroplasty Lupillo - Елена Burks MD Physical Therapy Treatment Note M2 PT-IP Current Condition Start: 05/14/24 16:06 Freq: NEEDED Status: Active Protocol: Document 05/14/24 15:01 AB (Rec: 05/14/24 16:22 AB [id number]) Physical Therapy Current Condition Current Condition Evaluation Date 05/14/24 Treatment Diagnosis L femoral neck fx s/p L hip hemiarthroplasty; difficulty in walking Onset Date 05/13/24 M3 PT-IP Subjective Start: 05/14/24 16:06 Freq: NEEDED Status: Active Protocol: Document 05/17/24 10:53 TS (Rec: 05/17/24 10:58 TS [id number]) Subjective Physical Therapy Visit Type Type Treatment Note Visit Start Time 10:36 Visit Stop Time 10:50 Number of BUNKER WORKER Visits 1 Physical Therapy Visit Comments Patient Comments Pt found resting in the chair, he is confused, he agrees to PT. Therapy Pain Assessment Pain When Pain Assessed At Rest Pain Present Pain Present Pain Reported M4 PT-IP Mobility and Gait Start: 05/14/24 16:06 Freq: NEEDED Status: Active Protocol: Document 05/17/24 10:53 TS (Rec: 05/17/24 10:58 TS [id number]) PT-Transfer Assessment Comments Mobility Comments Pt agrees to try to stand. He attempts to sit up in the chair with MaxA, pt is guarding due to pain and requests to stay in the chair. He performed ankle pumps, heel slisdes, glute sets and quad sets with some difficulty following instructions. Pt was left int he chair, chair alarm on. Gait Assessment Comments Gait Comments unable at this time PT-Balance Assessment Sitting Balance and Reactions Static Sitting Balance Ability Poor Dynamic Sitting Balance Ability Poor M5 PT-IP Objective Assessments Start: 05/14/24 16:06 Freq: NEEDED Status: Active Protocol: Document 05/14/24 15:01 AB (Rec: 05/14/24 16:22 AB [id number]) Orientation Orientation/Cognition Level of Alertness Confusional State Orientation Name Language Function Ability Hard of Hearing Safety Awareness Decreased Safety Awareness Memory Description Short Term Impaired,Usp Impaired Gross Range of Motion Lower Extremity ROM Assessment Within Functional Limits Strength Lower Extremity Strength Assessment Left Impaired Hip 3-/5 Knee 3+/5 Sensation Assessment Sensation Gross Sensation WNL Muscle Tone Muscle Tone WNL Yes M6 PT-IP Treatment Start: 05/14/24 16:06 Freq: NEEDED Status: Active Protocol: Document 05/17/24 10:53 TS (Rec: 05/17/24 10:58 TS [id number]) Physical Therapy Treatment Exercises Exercises Ankle Pumps,Gluteal Sets,Quad Sets,Heel Slides Education Education Provided Precautions,Weight Bearing Status,Post-Op Packet,Safety M7 PT-IP Assessment and Plan Start: 05/14/24 16:06 Freq: NEEDED Status: Active Protocol: Document 05/17/24 10:53 TS (Rec: 05/17/24 10:58 TS [id number]) PT Summary Assessment and Plan Potential Rehabilitation Potential Poor Summary Impairments Pain,ROM,Strength,Balance, Coordination,Sensation,Tone, Cognition,Bed Mobility, Transfers,Gait,Activity Tolerance Progress Towards Goals Slow Progress due to Pain,Slow Progress due to Activity Tolerance,Slow Progress - Other Assessment Summary Sudhir is making slow progress with his mobility. He was sitting up in the chair this morning and was unable to move in the chair with MaxA due to guarding form pain. He did perform some ther-ex with some difficulty following instructions. PT continues to recommend SNF. Goals Bed Mobility Goal Minimal Assistance Transfer Goal Minimal Assistance,Front Wheeled Walker Gait Goal Minimal Assistance,Front Wheel Walker Gait Distance 20 Other Goals improve bed mobility, transfers. ambulation using FWW 100 ft SBA up/down 5 steps B rails SBA Days to Meet Goals 10 Frequency of Treatment Other frequency 1-2x/week Treatment Plan Physical Therapy Treatment Plan Bed Mobility Training,Transfer Training,Gait Training, Therapeutic Exercise,Balance Retraining,Post Op Education, Discharge Planning,Hot or Cold Pack,Neuromuscular Re-ed, Coordination Retraining,Manual Therapy Precautions Posterior Hip Precautions No Hip Flexion > 90 degrees,No Hip Internal Rotation,No Hip Adduction Other Precautions No hip flexion greater than 70 deg Roll to operative side only Lock out knee position on bed to full flat Pillow between legs at all times Weight Bearing Status Weight Bearing Status Weight Bear as Tolerated Allowed Weight Bearing Amount (enter % LLE or #) (%) Recommendations To Nursing Amount of Assist Needed Mechanical Lift Discharge Recommendations PT Discharge Recommendations SNF Rehab Transportation Needs at Discharge Wheelchair/Cabulance,Stretcher /Ambulance
--- NOTE | 2024-05-17 10:36 | PT.IPTN ---
Current Diagnoses Age-related osteoporosis with current pathological fracture, left femur, initial encounter for fracture (05/13/24) Fracture of unspecified part of neck of left femur, initial encounter for closed fracture (05/13/24) Presence of unspecified artificial hip joint (05/13/24) Surgery Performed Operation Date: 05/14/24 08:00 Actual Procedures p Hip Hemiarthroplasty Lupillo - Елена Burks MD Physical Therapy Treatment Note M2 PT-IP Current Condition Start: 05/14/24 16:06 Freq: NEEDED Status: Active Protocol: Document 05/14/24 15:01 AB (Rec: 05/14/24 16:22 AB [id number]) Physical Therapy Current Condition Current Condition Evaluation Date 05/14/24 Treatment Diagnosis L femoral neck fx s/p L hip hemiarthroplasty; difficulty in walking Onset Date 05/13/24 M3 PT-IP Subjective Start: 05/14/24 16:06 Freq: NEEDED Status: Active Protocol: Document 05/17/24 10:53 TS (Rec: 05/17/24 10:58 TS [id number]) Subjective Physical Therapy Visit Type Type Treatment Note Visit Start Time 10:36 Visit Stop Time 10:50 Number of CORPORATE LEGAL SECRETARY Visits 1 Physical Therapy Visit Comments Patient Comments Pt found resting in the chair, he is confused, he agrees to PT. Therapy Pain Assessment Pain When Pain Assessed At Rest Pain Present Pain Present Pain Reported M4 PT-IP Mobility and Gait Start: 05/14/24 16:06 Freq: NEEDED Status: Active Protocol: Document 05/17/24 10:53 TS (Rec: 05/17/24 10:58 TS [id number]) PT-Transfer Assessment Comments Mobility Comments Pt agrees to try to stand. He attempts to sit up in the chair with MaxA, pt is guarding due to pain and requests to stay in the chair. He performed ankle pumps, heel slisdes, glute sets and quad sets with some difficulty following instructions. Pt was left int he chair, chair alarm on. Gait Assessment Comments Gait Comments unable at this time PT-Balance Assessment Sitting Balance and Reactions Static Sitting Balance Ability Poor Dynamic Sitting Balance Ability Poor M5 PT-IP Objective Assessments Start: 05/14/24 16:06 Freq: NEEDED Status: Active Protocol: Document 05/14/24 15:01 AB (Rec: 05/14/24 16:22 AB [id number]) Orientation Orientation/Cognition Level of Alertness Confusional State Orientation Name Language Function Ability Hard of Hearing Safety Awareness Decreased Safety Awareness Memory Description Short Term Impaired,Care Home Impaired Gross Range of Motion Lower Extremity ROM Assessment Within Functional Limits Strength Lower Extremity Strength Assessment Left Impaired Hip 3-/5 Knee 3+/5 Sensation Assessment Sensation Gross Sensation WNL Muscle Tone Muscle Tone WNL Yes M6 PT-IP Treatment Start: 05/14/24 16:06 Freq: NEEDED Status: Active Protocol: Document 05/17/24 10:53 TS (Rec: 05/17/24 10:58 TS [id number]) Physical Therapy Treatment Exercises Exercises Ankle Pumps,Gluteal Sets,Quad Sets,Heel Slides Education Education Provided Precautions,Weight Bearing Status,Post-Op Packet,Safety M7 PT-IP Assessment and Plan Start: 05/14/24 16:06 Freq: NEEDED Status: Active Protocol: Document 05/17/24 10:53 TS (Rec: 05/17/24 10:58 TS [id number]) PT Summary Assessment and Plan Potential Rehabilitation Potential Poor Summary Impairments Pain,ROM,Strength,Balance, Coordination,Sensation,Tone, Cognition,Bed Mobility, Transfers,Gait,Activity Tolerance Progress Towards Goals Slow Progress due to Pain,Slow Progress due to Activity Tolerance,Slow Progress - Other Assessment Summary Sudhir is making slow progress with his mobility. He was sitting up in the chair this morning and was unable to move in the chair with MaxA due to guarding form pain. He did perform some ther-ex with some difficulty following instructions. PT continues to recommend SNF. Goals Bed Mobility Goal Minimal Assistance Transfer Goal Minimal Assistance,Front Wheeled Walker Gait Goal Minimal Assistance,Front Wheel Walker Gait Distance 20 Other Goals improve bed mobility, transfers. ambulation using FWW 100 ft SBA up/down 5 steps B rails SBA Days to Meet Goals 10 Frequency of Treatment Other frequency 1-2x/week Treatment Plan Physical Therapy Treatment Plan Bed Mobility Training,Transfer Training,Gait Training, Therapeutic Exercise,Balance Retraining,Post Op Education, Discharge Planning,Hot or Cold Pack,Neuromuscular Re-ed, Coordination Retraining,Manual Therapy Precautions Posterior Hip Precautions No Hip Flexion > 90 degrees,No Hip Internal Rotation,No Hip Adduction Other Precautions No hip flexion greater than 70 deg Roll to operative side only Lock out knee position on bed to full flat Pillow between legs at all times Weight Bearing Status Weight Bearing Status Weight Bear as Tolerated Allowed Weight Bearing Amount (enter % LLE or #) (%) Recommendations To Nursing Amount of Assist Needed Mechanical Lift Discharge Recommendations PT Discharge Recommendations SNF Rehab Transportation Needs at Discharge Wheelchair/Cabulance,Stretcher /Ambulance
--- NOTE | 2024-05-17 10:50 | OT.IP.EVAL ---
Current Diagnoses Age-related osteoporosis with current pathological fracture, left femur, initial encounter for fracture (05/13/24) Fracture of unspecified part of neck of left femur, initial encounter for closed fracture (05/13/24) Presence of unspecified artificial hip joint (05/13/24) Surgery Performed Operation Date: 05/14/24 08:00 Actual Procedures p Hip Hemiarthroplasty Lupillo - Елена Burks MD Occupational Therapy Inpatient Evaluation/Re-Eval M1 PT/OT-IP Prior Functional Status Start: 05/17/24 10:57 Freq: NEEDED Status: Active Protocol: Document 05/17/24 10:30 [facility] (Rec: 05/17/24 11:12 [facility] [id number]) Medical Review Prior Functional Status Medical History Reviewed Yes Communication able to make needs known but with memory issues Mobility and Gait pt stated that he mostly stays on his power w/c but able ambulate some with his caregivers using a 4WW. stated that he is able to stand pivot transfer by himself without AD to get in/out of the power w/c Activities of Daily Living and IADL's Pt states his assist for ADL needs. Social History Household Members spouse,caregiver Living Arrangements House Number of Floors (Floors) One Floor Number of Stairs To Enter/Railing? 5 steps B rails to enter Home Environment Standard Height Toilet,Walk in Shower Home Equipment Front Wheel Walker,Four Wheel Walker,Shower Seat with Backrest,Hand Held Shower,Grab Bars Near Toilet,Grab Bars In Shower Additional Social History Comment pt stated that he has caregivers that come in to assist but does not remember how often M2 OT-IP Current Condition Start: 05/17/24 10:57 Freq: Status: Active Protocol: Document 05/17/24 10:30 [facility] (Rec: 05/17/24 11:12 [facility] [id number]) Occupational Therapy Current Condition Current Condition Evaluation Date 05/17/24 Treatment Diagnosis L femoral neck fx, s/P LTHA Diagnosis Onset Date 05/13/24 Post Operative Precautions Posterior Hip Precautions No Hip Flexion > 90 degrees,No Hip Internal Rotation,No Hip Adduction M3 OT- IP Subjective and Pain Start: 05/17/24 10:57 Freq: Status: Active Protocol: Document 05/17/24 10:30 [facility] (Rec: 05/17/24 11:12 [facility] [id number]) OT- Subjective Occupational Therapy Visit Type Type Initial Evaluation Visit Start Time 10:30 Visit Stop Time 10:50 Occupational Therapy Visit Comments Patient Comments Pt agreed to try to stand from the recliner initially. OT Pain Assessment Pain When Pain Assessed During Mobility Pain Present Pain Present Pain Reported Location left hip Intensity 10 Pain Behaviors Calling Out,Facial Grimacing, Holding Area,Moaning M4 OT- IP ADL's Start: 05/17/24 10:57 Freq: Status: Active Protocol: Document 05/17/24 10:30 [facility] (Rec: 05/17/24 11:12 [facility] [id number]) OT [id number] Comments OT Self-Feeding Comments NOt at meal time. OT ADL-Grooming Comments OT Grooming Comments NOt performed. OT ADL-Oral Care Comments Oral Care Comments Not performed. OT ADL-Dressing General Eval Upper Body Dressing Ability Maximum Assistance Lower Body Dressing Ability Total Assistance Areas Needing Assistance Socks Comments OT Dressing Comments Assist to put a gown on him. Dependent for socks. OT ADL-Toileting General Evaluation Toileting Ability Total Assistance Areas Needing Assistance Empty Catheter or Colostomy Comments OT Toileting Comments Downing in place. OT ADL-Bathing Comments OT Bathing Comments Sponge bath more appropriate at this time. M5 OT- IP IADL's Start: 05/17/24 10:57 Freq: Status: Active Protocol: Document 05/17/24 10:30 [facility] (Rec: 05/17/24 11:12 [facility] [id number]) OT-Instrumental Activities of Daily Living Home Safety Awareness Awareness of Need for Assistance at Home Decreased Awareness Ability to Problem Solve Emergency Unable to Problem Solve Situations Medication Management Medication Management Caregiver Administers Money Management Money Management Caregiver Provides Assistance Meal Preparation Meal Preparation Caregiver Provides Assist Director Of Estate Director Of Estate Caregiver Provides Assist M6 OT- IP Functional Cognition Start: 05/17/24 10:57 Freq: Status: Active Protocol: Document 05/17/24 10:30 [facility] (Rec: 05/17/24 11:12 [facility] [id number]) Cognitive Factors Limiting Selfcare Function Cognitive Ability Level of Alertness Alert,Confusional State Patient Orientation Name,Place,Situation Attention Span Ability Capable of Focused Attention, Capable of Sustained Attention Ability to Follow Commands Able to Follow One Step Commands with Increased Time, Able to Follow One Step Commands with Repetition Cognitive Comments Cognitive Assessment Comments Pt able to follow simple commands and aware that he just had hip sx. Pt having trouble to move his body and needing lots of cues to follow . OT- Vision and Hearing OT- Vision Assessment Vision Assessment Comments TO further assess. M7 OT- IP Mobility and Balance Start: 05/17/24 10:57 Freq: Status: Active Protocol: Document 05/17/24 10:30 [facility] (Rec: 05/17/24 11:12 [facility] [id number]) OT-Transfer Assessment Comments Mobility Comments Pt needing MAXA X2 to help scoot the edge of the recliner . Pt not able to maintain sitting position at the edge of the recliner and needing MAXAX 1. Pt not able to do more and wanting to recline back. Able to use green pad to help position pt off left hip . Spoke to nursing aid pt will need assist to position as unable to do so on his own. At this time, kiersten lift for pt. OT- Balance Assessment Sitting Balance and Reactions Static Sitting Balance Ability Poor Dynamic Sitting Balance Ability Poor M8 OT- IP Objective Assessments Start: 05/17/24 10:57 Freq: Status: Active Protocol: Document 05/17/24 10:30 [facility] (Rec: 05/17/24 11:12 [facility] [id number]) OT Gross Range of Motion Upper Extremity Range of Motion ROM Impairments grossly WFl OT Strength Upper Extremity Strength Assessment Within Functional Limits M9 OT- IP Assessment and Plan Start: 05/17/24 10:57 Freq: Status: Active Protocol: Document 05/17/24 10:30 [facility] (Rec: 05/17/24 11:12 [facility] [id number]) OT Summary Assessment and Plan Potential Rehabilitation Potential Fair Analytic Complexity at Evaluation Moderate Summary OT Impairments Pain,Strength,Balance, Functional Cognition, Functional Mobility,Self- Feeding,Grooming,Dressing, Toileting,Bathing,Toilet Transfers,Shower Transfers, Activity Tolerance Progress Towards Goals Slow Progress due to Pain,Slow Progress due to Medical Issues,Slow Progress due to Activity Tolerance,Slow Progress due to Cognition Assessment Summary Pt MOD complexity and main barriers are steps, use of kiersten for transfers at this time, confused, pain, and will benefit from skilled rehab in hopes of maximizing level of independence as prior pt able to stand pivot transfer on his own. Goals Self-Feeding Goal Standby Assistance Grooming Goal Standby Assistance Dressing Goal Moderate Assistance Toileting Goal Moderate Assistance Bathing Goal Moderate Assistance Toilet Transfer Goal Minimal Assistance Shower Transfer Goal Moderate Assistance Days to Meet Goals 30 Frequency of Treatment Other frequency 5x/week Discharge Recommendations OT Discharge Recommendations SNF Rehab Transportation Needs at Discharge Stretcher/Ambulance
--- NOTE | 2024-05-17 14:50 | CM.DPNOTE ---
ANUP Cont Reviewed chart. Patient discussed in multidisciplinary rounds. Spouse was at bedside last night and reportedly will return later today (?) Spouse is not readily available by phone, this MEAT SERVICE TEAM MEMBER unable to reach spouse to discuss discharge plan options. Dr Ernandez continues to report patient is a good hospice candidate and plans to discuss goals of care with spouse when she can be reached. This care team unsure what and how much care is available to patient if he returns home, this needs to be discussed with spouse. CM team following clinical course closely. SHAREE
--- NOTE | 2024-05-17 16:13 | CM.DPNOTE ---
DCP UPDATE Spouse and caregiver Denise at bedside this afternoon. DPOA is son Shen P [phone], also lives in [place], available by phone. Dr Ernandez has confirmed with patient's family that home w/[facility] is the desired plan. Met w/family to confirm. Caregiver Denise is with patient 02/03, privately contracted. There is another caregiver that can fill in for Denise as needed. Patient's address: [address] [place] [address]. Plan: Discharge home w/family, 02/03 caregiver and hospice via BLS is anticipated. Still need: Referral to [facility], coordination of services and DME delivery, confirmation of plan with DPOA/son Shen, Updated POLST (?), arrange transportation. SHAREE
--- NOTE | 2024-05-17 18:09 | PM.PNPO.1 ---
Subjective Subjective Interval history: Patient has pain along the left hip. No new numbness or tingling of the lower extremities. Exam Vital Signs (past 8 hours): Oxygen Delivery Method Room Air Oxygen Flow Rate 0 Narrative Exam Narrative: Patient has around by and caregiver. Has difficulty articulating. Dressing clean and dry. Decreased strength noted in bilateral lower extremities. 5/5 EHL bilaterally. 3/5 with DF, PF, knee flexors and extensors. Objective Labs 05/15/24 09:15 05/14/24 13:55 PFSH Social History household members: spouse and caregiver Smoking Status: Former smoker alcohol intake: current Assessment & Plan Post-op Postoperative Procedures: Procedures Operation Date: 05/14/24 08:00 Actual Procedure Side Surgeon p Hip Hemiarthroplasty Lupillo Left Елена Burks MD Postoperative day: 3 Postoperative plan narrative: 1) PT - WBAT to LLE. Posterior hip precautions x 6 weeks. 2) Continue enoxaparin 40mEq daily x 4 weeks postop for VTE prophylaxis. 3) Remove dressing in 10-14 days postop, sooner if it becomes saturated inside. F/u in office in 4-6 weeks for repeat xrays. 4) Disposition, VTE prophylaxis, pain control per hospitalist service. Quality VTE Deep Vein Thrombosis/Pulmonary Embolism Present on Admission: No
[2024-05-17 20:00] VITALS: BP 101/61; PULSE 96; RESP 16; TEMP 36.6; O2SAT 93
[2024-05-17] MEDS: ATORVASTATIN 20 MG TABLET 40 MG PO (20:06)
[2024-05-18] MEDS: LEVOTHYROXINE 88 MCG TABLET PO (05:05)
--- NOTE | 2024-05-18 07:46 | PM.PN.1 ---
Subjective Subjective Interval history: Spoke with the family yesterday, there is a tentative plan for home with hospice. I explained that the patient was not really improving after his hip injury and repair. His son, Shen, is power of cellulose insulation helper for healthcare and appears to be directing the rest of the family. S: He was doing a little bit better today, more awake. He was some rectal pain. His hip feels better. No dyspnea. Primary goal is to get home as soon as possible, to his . Exam Vital Signs (past 8 hours): Oxygen Delivery Method Room Air Oxygen Flow Rate 0 Narrative Exam Narrative: NAD, alert and oriented. Fluent speech. Lungs are clear, normal rate and effort. Heart is regular, no murmur gallop or rub. Abdomen is soft, non distended. Extremities are free of edema. Objective Labs 05/15/24 09:15 05/14/24 13:55 PFSH Social History household members: spouse and caregiver Smoking Status: Former smoker alcohol intake: current Assessment & Plan Assessment & Plan narrative: 1. Acute left hip fracture, present on admission and active, status post hemiarthroplasty 05/14/2024. 2. Hypertension, present on admission stable on routine home medications 3. Dyslipidemia, present on admission and stable. 4. Hypothyroidism. Stable. 5. Anemia due to hip fracture, monitor. 6. Osteoarthritis with chronic debility, wheelchair-bound 7. Postoperative delirium, suspect underlying mild cognitive impairment. New and improving. 8. Possible history of lung cancer, details to follow. DVT prophylaxis, on subcutaneous enoxaparin PLAN: -referral has been made to hospice for home with hospice. -he may be able to discharge tomorrow with hospice opening on . -continue pain control and mobilize as able. Inpatient status, anticipate at least 2 midnights of medical care in the hospital. DNR Shen (son) is proxy. Time-Based Coding :: [TOTAL MINUTES] spent with patient and on the chart (including review of chart, obtaining history, exam, reviewing outside data, placing orders, documenting exam and treatment plan, and counseling patient) on [DATE]. Quality VTE Deep Vein Thrombosis/Pulmonary Embolism Present on Admission: No
[2024-05-18 08:04] VITALS: BP 115/79; PULSE 100; RESP 20; TEMP 36.4; O2SAT 95
[2024-05-18 09:17] VITALS: BP 115/79
[2024-05-18] MEDS: lisinopriL 20 MG TABLET PO (09:17)
[2024-05-18 09:18] VITALS: BP 115/79
[2024-05-18] MEDS: hydroCHLOROthiazide 25 MG TABLET PO (09:18)
[2024-05-18] MEDS: METOPROLOL ER 50 MG TABLET PO (09:18)
[2024-05-18] MEDS: ENOXAPARIN 40 MG/0.4 ML SYRINGE SUBCUT (09:18)
[2024-05-18] MEDS: VENLAFAXINE ER 75 MG CAP 150 MG PO (09:18)
[2024-05-18] MEDS: DOCUSATE 100 MG CAPSULE PO ×2 (09:18→21:09)
[2024-05-18] MEDS: ACETAMINOPHEN 325 MG TABLET 650 MG PO (09:20)
--- NOTE | 2024-05-18 10:50 | PM.PNPO.1 ---
Subjective Subjective Date Patient Seen: 05/18/24 Interval history: Patient found lying comfortably in bed. No increase in pain numbness or tingling down either leg. He has been having difficulty ambulating with physical therapy. Exam Vital Signs (past 8 hours): - 05/18/24 08:04 05/18/24 09:17 05/18/24 09:18 Temperature 97.6 F Pulse Rate 100 H Respiratory Rate 20 Blood Pressure 115/79 115/79 115/79 Pulse Oximetry 95 Oxygen Flow Rate 0 Oxygen Delivery Method Room Air Oxygen Flow Rate 0 Narrative Exam Narrative: Patient is responsive today to communication. Dressing is clean dry intact. 4/5 strength in quadriceps, hamstrings, DF, PF, bilaterally. 5/5 EHL bilaterally. Improving from yesterday. Sensation to light touch intact throughout BLE. Calves soft, compressible, nontender. ?Dressing placed intraoperatively CDI. Objective Labs 05/15/24 09:15 05/14/24 13:55 PFSH Social History household members: spouse and caregiver Smoking Status: Former smoker alcohol intake: current Assessment & Plan Post-op Postoperative Procedures: Procedures Operation Date: 05/14/24 08:00 Actual Procedure Side Surgeon p Hip Hemiarthroplasty Lupillo Left Елена uBrks MD Postoperative day: 4 Postoperative plan narrative: 1) PT - WBAT to LLE. Posterior hip precautions x 6 weeks. 2) Continue enoxaparin 40mEq daily x 4 weeks postop for VTE prophylaxis. 3) Remove dressing in 10-14 days postop, sooner if it becomes saturated inside. F/u in office in 4-6 weeks for repeat xrays. 4) Disposition, VTE prophylaxis, pain control per hospitalist service. Time Spent With Patient Time with patient: less than 15 minutes Quality VTE Deep Vein Thrombosis/Pulmonary Embolism Present on Admission: No
--- NOTE | 2024-05-18 11:30 | OT.IPNOTE ---
Pt to be on Hospice, therefore discharge OT services.
--- NOTE | 2024-05-18 16:35 | CM.DPNOTE ---
DCP Note HEAD FILTER PRESS TENDER reviewed EMR Per chart, plan to dc home on hospice support. HEAD FILTER PRESS TENDER spoke with Yecenia from [facility], SOC scheduled for Thursday at 10am in the home in [place]. Schedule for delivering bed/table to room pending. likely . CC Avis kindly agreed to send referral information via rightfax. HEAD FILTER PRESS TENDER spoke with son Shen ([phone]). Shen in agreement with plan to dc home on hospice, TILA Walker ([phone]) to help coordinate dc/provide care at home. HEAD FILTER PRESS TENDER explained potential cost of BLS transport, shen report understanding and is in agreement with BLS transport. HEAD FILTER PRESS TENDER reviewed POLST form with Shen, agrees to sign for pt to be comfort care. Confirms is healthcare POA and will look for those forms to send in. HEAD FILTER PRESS TENDER emailed Shen ([email or web address]) copy of unsigned POLST form. No response as of 1640, called again, no response in afternoon. P: anticipate dc home afternoon after DME delivered into home, need to schedule BLS/complete transport form. Signed POLST and POA paperwork needed. CM team will continue to follow closely KENZIE Estrada
[2024-05-18 20:00] VITALS: BP 105/51; PULSE 89; RESP 13; TEMP 36.5; O2SAT 97
[2024-05-18] MEDS: ATORVASTATIN 20 MG TABLET 40 MG PO (21:09)
[2024-05-18] MEDS: TRAMADOL 50 MG TABLET PO (23:57)
[2024-05-19] MEDS: LEVOTHYROXINE 88 MCG TABLET PO (05:43)
[2024-05-19 07:00] VITALS: BP 114/64; PULSE 95; RESP 18; TEMP 36.4; O2SAT 92
[2024-05-19 08:54] VITALS: BP 114/64; PULSE 80
[2024-05-19] MEDS: DOCUSATE 100 MG CAPSULE PO (08:54)
[2024-05-19] MEDS: METOPROLOL ER 50 MG TABLET PO (08:54)
[2024-05-19] MEDS: lisinopriL 20 MG TABLET PO (08:54)
[2024-05-19] MEDS: VENLAFAXINE ER 75 MG CAP 150 MG PO (08:54)
[2024-05-19] MEDS: hydroCHLOROthiazide 25 MG TABLET PO (08:54)
[2024-05-19] MEDS: ENOXAPARIN 40 MG/0.4 ML SYRINGE SUBCUT (09:59)
--- NOTE | 2024-05-19 11:32 | PM.PN.1 ---
Subjective Subjective Interval history: Subjective: He is more awake and oriented today. He denies any pain issues. He was oriented to person, place, and year but not month. It was his primary goal to return home as soon as possible. Exam Vital Signs (past 8 hours): - 05/19/24 07:00 05/19/24 08:54 05/19/24 08:54 Temperature 97.6 F Pulse Rate 95 H 80 80 Respiratory Rate 18 Blood Pressure 114/64 114/64 114/64 Pulse Oximetry 92 Oxygen Flow Rate 0 Oxygen Delivery Method Room Air Oxygen Flow Rate 0 Narrative Exam Narrative: NAD, alert and oriented to person, place, and time except year only not month. Fluent speech. Lungs are clear, normal rate and effort. Heart is regular, no murmur gallop or rub. Abdomen is soft, non distended. Extremities are free of edema. Objective Labs 05/15/24 09:15 05/14/24 13:55 PFSH Social History household members: spouse and caregiver Smoking Status: Former smoker alcohol intake: current Assessment & Plan Assessment & Plan narrative: 1. Acute left hip fracture, present on admission and active, status post hemiarthroplasty 05/14/2024. 2. Hypertension, present on admission and stable on routine home medications 3. Dyslipidemia, present on admission and stable. 4. Hypothyroidism. Stable. 5. Anemia due to hip fracture, monitor. 6. Osteoarthritis with chronic debility, wheelchair-bound 7. Postoperative delirium, suspect underlying mild cognitive impairment. New and improving. 8. Possible history of lung cancer, details to follow. DVT prophylaxis, on subcutaneous enoxaparin PLAN: -referral has been made to hospice for home with hospice. -continue discharge planning. The plan is still hospice at home. MARGARITO: 05/20 Inpatient status, anticipate at least 2 midnights of medical care in the hospital. DNR Shen (son) is proxy. Time-Based Coding :: [TOTAL MINUTES] spent with patient and on the chart (including review of chart, obtaining history, exam, reviewing outside data, placing orders, documenting exam and treatment plan, and counseling patient) on [DATE]. Quality VTE Deep Vein Thrombosis/Pulmonary Embolism Present on Admission: No
[2024-05-19 12:37] VITALS: PULSE 80
--- NOTE | 2024-05-19 15:12 | PM.PNPO.1 ---
Subjective Subjective Date Patient Seen: 05/19/24 Time Patient Seen: 15:12 Interval history: Denies pain otherwise patient is very confused at this time. Exam Vital Signs (past 8 hours): - 05/19/24 08:54 05/19/24 08:54 05/19/24 12:37 Pulse Rate 80 80 80 Blood Pressure 114/64 114/64 Oxygen Delivery Method Room Air Oxygen Flow Rate 0 Narrative Exam Narrative: Resting comfortably in bed in no apparent distress. Dressing is clean, dry and intact. Neurovascular status is intact bilateral lower extremities. Const General: comfortable Nutritional Appearance: average body habitus Orientation: alert Objective Labs 05/15/24 09:15 05/14/24 13:55 PFSH Social History household members: spouse and caregiver Smoking Status: Former smoker alcohol intake: current Assessment & Plan Post-op Postoperative Procedures: Procedures Operation Date: 05/14/24 08:00 Actual Procedure Side Surgeon p Hip Hemiarthroplasty Lupillo Left Елена Burks MD Postoperative plan narrative: 1) PT - WBAT to LLE. Posterior hip precautions x 6 weeks. 2) Continue enoxaparin 40mEq daily x 4 weeks postop for VTE prophylaxis. 3) Remove dressing in 10-14 days postop, sooner if it becomes saturated inside. F/u in office in 4-6 weeks for repeat xrays. 4) Disposition, VTE prophylaxis, pain control per hospitalist service. Quality VTE Deep Vein Thrombosis/Pulmonary Embolism Present on Admission: No
--- NOTE | 2024-05-19 16:19 | CM.DPNOTE ---
DCP Note CERTIFIED TECHNICIAN SPECIALIST reviewed EMR and discussed with team in multidisciplinary rounds. Per RN, pt confused throughout the day. Has not been able to get out of bed. Per RN, son/granddaughter called her and they no longer wish to dc patient home with hospice services. Per son Shen (POA) no longer wants pt to dc home with hospice support. Preference is for pt to go home with HH services. Does not want to pursue SNF rehab. CERTIFIED TECHNICIAN SPECIALIST attempted to review the care needs pt would have in order to safely dc home, to which son Shen directed this CERTIFIED TECHNICIAN SPECIALIST to caregiver Denise ([phone]). Shen in agreement with non emergency ambulance transportation home, reports verbal understanding there may be a bill associated with BLS. No preference for HH agency. Shen unsure of who pt's PCP is. CERTIFIED TECHNICIAN SPECIALIST cancelled referral with Dheeraj Solomon (p [phone]). Yecenia reports understanding. CERTIFIED TECHNICIAN SPECIALIST attempted to contact with Denise throughout the day, no response. CERTIFIED TECHNICIAN SPECIALIST called home phone on file ([phone]). spoke with spouse and caregiver (not Denise, this CERTIFIED TECHNICIAN SPECIALIST does not remember other caregiver name). CG/spouse also did not know PCP. CG will reach out to Denise re: pt's needs for dc and DCP. CERTIFIED TECHNICIAN SPECIALIST spoke with yaritza at [facility], kindly agreed to review. Emailed referral information. F2f/order needed. acceptance pending. Shen Wants pt to be full code. Provider notified. CERTIFIED TECHNICIAN SPECIALIST completed BLS transport form in anticipation of transport home, signature needed. P: anticipate home with HH, acceptance pending, for RN/PT/OT. anticipate BLS transport. need to finalize with CGs and Shen plan for tomorrow. Liseth Mendoza, KENZIE
[2024-05-19 20:00] VITALS: BP 114/54; PULSE 85; RESP 24; TEMP 36.4; O2SAT 94
[2024-05-19] MEDS: ATORVASTATIN 20 MG TABLET 40 MG PO (20:40)
[2024-05-20] MEDS: LEVOTHYROXINE 88 MCG TABLET PO (05:44)
[2024-05-20 08:00] VITALS: BP 122/61; PULSE 81; RESP 18; TEMP 36.4; O2SAT 97
[2024-05-20] MEDS: METOPROLOL ER 50 MG TABLET PO (10:08)
[2024-05-20] MEDS: lisinopriL 20 MG TABLET PO (10:09)
[2024-05-20] MEDS: VENLAFAXINE ER 75 MG CAP 150 MG PO (10:09)
[2024-05-20] MEDS: hydroCHLOROthiazide 25 MG TABLET PO (10:09)
[2024-05-20] MEDS: DOCUSATE 100 MG CAPSULE PO (10:09)
[2024-05-20] MEDS: ENOXAPARIN 40 MG/0.4 ML SYRINGE SUBCUT (10:09)
--- NOTE | 2024-05-20 10:34 | PM.DS.1 ---
History of Present Illness History of Present Illness Chief complaint: Hip px, no BM x9 days Narrative: From ED doctor: 88-year-old male history of hypertension, dyslipidemia on an aspirin daily who presents with complaint of left hip pain. Patient had a fall after being hit by a car door falling onto his left hip proximally 9 days ago. States he was seen at [facility] sounds like he had x-rays was told it was not broken discharged home but states he has been able to weightbear on it since then. Patient states he is pain with any sort of movement and will have spasm at the site as well. Denies any numbness or tingling. He denies other injuries denies hitting his, denies neck or back pain. Patient any chest pain or shortness of breath. No nausea or vomiting. Has not had a bowel movement at least 2 days, according to his caregiver 9 days but patient states she was not there when he had his last bowel movement. States he has been urinating regularly but had to use a container as he can not get to the bathroom. Home medications include venlafaxine, lisinopril, statin, aspirin daily. Patient has had prior right hip repair. Has also had cardiac stents in the past. Former smoker, one alcoholic drink daily, no recreational drugs. Patient lives at home with his but does have a caregiver who is at bedside. Patient's primary care is Shraddha Cabrera. Additional information: As noted, the patient had x-rays at [facility] about 9 days ago which were said to be normal. The patient walked to that visit but has not walked since. Because of persistence of pain and inability to walk he presented today. Radiographs 2 demonstrate a fracture. He denies any dyspnea, leg pain or swelling. Discussed with orthopedics, 5th. He denies any chest pain, or dyspnea. There was some report about constipation, but he was not really mentioned at when I talked to him. He does confirmed DNR status. He denies any issues with nausea or poor appetite recently. He does note that he was walking for several days after his ER visit with normal x-rays of the hip. He denies a 2nd fall. Discharge Providers Provider Date of admission: 05/13/24 16:47 Discharge Date: 05/20/24 Primary care physician: Ulisses Miller MD Consults: 05/14/24 11:03 Consult to Occupational Therapy Evaluate & Treat Comment: Physician Instructions: Evaluate and treat Consult to Physical Therapy Evaluate & Treat Comment: Posterior hip precautions Physician Instructions: post op ROCAEL protocol 05/15/24 06:56 Consult to Discharge Planning Routine Comment: Discharge provider: Noé Ernandez MD Summary Hospital Course Discharge Diagnosis: 1. Acute left hip fracture, present on admission and active, status post hemiarthroplasty 05/14/2024. 2. Hypertension, present on admission and stable on routine home medications 3. Dyslipidemia, present on admission and stable. 4. Hypothyroidism. Stable. 5. Anemia due to hip fracture, monitor. 6. Osteoarthritis with chronic debility, wheelchair-bound 7. Postoperative delirium, suspect underlying mild cognitive impairment. New and improving. 8. Possible history of lung cancer, details to follow. Hospital Course: The patient was admitted for hip fracture after a fall and was repaired with a hemiarthroplasty on May 14. He had a profound postoperative encephalopathy and generalized weakness and pain. He was very slow to progress with regards to mental status or any movement. Initially the family indicated that they might be open to hospice given his poor progression. Efforts were made in this direction, but the patient did improve dramatically over the last 2 days of his admission with more clear mental status and ability to progress. That point they changed him to a full resuscitation, cancel , and made a home plan to bring him home with home health physical therapy. They have a hospital bed and a Lauri lift at home. The son Shen is power of ip technology transactions attorney for healthcare. The patient lives with his who has cognitive impairment as well as a very able caregiver. Status at Discharge Cognitive/behavioral status at discharge: confused Functional status at discharge: wheelchair bound Overall status at discharge: patient is not back to baseline Time Spent with Patient Time spent: Greater than 30 minutes Exam Vital Signs (past 8 hours): - 05/20/24 08:00 Temperature 97.6 F Pulse Rate 81 Respiratory Rate 18 Blood Pressure 122/61 Pulse Oximetry 97 Oxygen Flow Rate 0 Oxygen Delivery Method Room Air Oxygen Flow Rate 0 Narrative Exam Narrative: NAD, alert and oriented to person and place. Fluent speech. Lungs are clear, normal rate and effort. Heart is regular, no murmur gallop or rub. Abdomen is soft, non distended. Extremities are free of edema. Objective Imaging CT scan - head: Radiologist's impression: Atrophy and chronic ischemic change without acute hemorrhage or mass lesion. No abnormal enhancement. No metastatic disease. Pelvis CT:: Radiologist's impression: Expected post-operative appearance of a hip arthroplasty. Labs 05/15/24 09:15 05/14/24 13:55 [facility] Social History household members: spouse and caregiver Smoking Status: Former smoker alcohol intake: current Discharge Assessment & Plan Assessment and Plan Assessment: 1. Acute left hip fracture, present on admission and active, status post hemiarthroplasty 05/14/2024. 2. Hypertension, present on admission and stable on routine home medications 3. Dyslipidemia, present on admission and stable. 4. Hypothyroidism. Stable. 5. Anemia due to hip fracture, monitor. 6. Osteoarthritis with chronic debility, wheelchair-bound 7. Postoperative delirium, suspect underlying mild cognitive impairment. New and improved. 8. Possible history of lung cancer, details to follow. Plan of Treatment: Home with HH. Transport home by BLS ambulance. Family with hospital bed and Lauri lift. Discharge Plan Discharge Plan Patient Disposition: Home Provider Discharge Comment: Stable for discharge home with pain medications. Patient's family has a hospital bed, and a Lauri lift. Discharge orders & Medications Prescriptions: New tramadol 50 mg Tablet 50 mg PO QID PRN (Reason: Pain, Moderate (4-6)) Qty: 15 0RF aspirin 81 mg capsule 81 mg PO BID Qty: 60 0RF Continued atorvastatin 40 mg Tablet 40 mg PO BEDTIME venlafaxine 150 mg Capsule,Extended Release 24hr 150 mg PO DAILY lisinopril-hydrochlorothiazide 20-25 mg Tablet 1 tab PO DAILY levothyroxine 88 mcg Capsule 88 mcg PO DAILY metoprolol succinate 50 mg Capsule,Sprinkle,Er 24hr 50 mg PO DAILY Medication counseling provided by Pharmacist: No Follow up/Referrals: Елена Burks MD [Physician] - None (Follow up w/ Dr Burks or PA in ortho clinic in 4-6 weeks for repeat imaging.) Ulisses Miller MD [Primary Care Provider] - Discharge Health Status Multidrug resistant organism: No MDRO Diet/Activity/Treatments Diet: Regular Activity: Weightbearing as tolerated, assistive device at all times when ambulatory or standing. Posterior hip precautions x 6 weeks. Cold/Heat Therapy: Ice to hip as needed for pain. Skin/Wound/Dressing Care Report to your healthcare provider any signs of infection, such as:: chills, fever, night sweats, unusual drainage and unusual redness Dressing: May shower. Keep Aquacel dressing in place for 10-14 days postop. If it becomes saturated inside, may remove sooner. No soaking incision or applying any creams, lotions, or ointments to it until completely healed. Incision is closed with absorbable suture and skin glue and does not require any special treatment other than keeping it clean and dry. Visit Report/Discharge Packet Instructions: DI for Hip Replacement, DI for Prescription Opioid Use Stand Alone Forms: Patient Portal/API, Surgery Discharge Discharge Data Primary Care Provider: Ulisses Miller VTE Deep Vein Thrombosis/Pulmonary Embolism Present on Admission: No MIPS - DC The patient has a history of heart transplant or Left Ventricular Assist Device (LVAD). If yes, STOP here.: No The patient has current or prior documentation of left ventricular ejection fraction (LVEF) less than or equal to 40%, or moderate or severely depressed left ventricular systolic function.: No
[2024-05-20 10:35] VITALS: PULSE 79
--- NOTE | 2024-05-20 10:50 | PM.PNPO.1 ---
Subjective Subjective Interval history: Sudhir is an 88 year old male who is POD# 6 s/p left cemented hemiarthroplasty by Dr. Burks. This morning he reports he is doing well overall, he reports he just got an enema to help w/ his constipation. Pain is moderate but well controlled. He plans to d/c today w/ HH. He still has Downing catheter in place. Denies fever, chills, chest pain, SOB, nausea, vomiting. Operative Date/Time/Diagnoses Date of procedure: 05/14/24 Time of procedure: 07:48 Pre-op diagnosis: Left displaced femoral neck fracture Post-op diagnosis: same Procedure & Clinicians Procedure: Cemented hemiarthroplasty for left fracture CPT code 47691 Same procedure as scheduled: Yes Indications: The patient is an 88-year-old male with a displaced left femoral neck fracture. He is indicated for operative fixation. The risks and benefits of the procedure have been discussed with the patient and given the opportunity to ask questions. The risks of surgery include but are not limited to infection, dislocation, fracture, persistence of pain, damage to nerves and blood vessels, posttraumatic arthritis, DVT, PE, cardiopulmonary complications and . The patient expressed a thorough understanding of the risks and benefits of surgery and has elected to proceed. Consent was signed. Surgeon: Елена Burks Dental Appliance Repairer: Lindy Ford Anesthesia Type: General and Local Exam Vital Signs (past 8 hours): - 05/20/24 08:00 Temperature 97.6 F Pulse Rate 81 Respiratory Rate 18 Blood Pressure 122/61 Pulse Oximetry 97 Oxygen Flow Rate 0 Oxygen Delivery Method Room Air Oxygen Flow Rate 0 Narrative Exam Narrative: Patient lying comfortably in bed during our interview today. No acute distress. AOx3. Grossly normal alignment of the LLE. DF, PF, EHL intact bilaterally. Gross sensation intact throughout bilateral lower extremities. Calves soft and non-tender bilaterally. SCDs are on and functioning. DP pulses intact. Post-surgical Aquacel dressing clean, dry and intact over the left hip without drainage. Objective Labs 05/15/24 09:15 05/14/24 13:55 PFSH Social History household members: spouse and caregiver Smoking Status: Former smoker alcohol intake: current Assessment & Plan Post-op Postoperative Procedures: Procedures Operation Date: 05/14/24 08:00 Actual Procedure Side Surgeon p Hip Hemiarthroplasty Lupillo Left Елена Burks MD Postoperative plan narrative: 1) Discharge disposition per medicine. Likely to home today w/ HH. 2) Continue multimodal pain management with ice to the hip for additional pain control. 3) Enoxaparin 40mEq daily x 4 weeks postop for VTE prophylaxis. 4) Start outpatient physical therapy to work on range of motion and mobility. WBAT to LLE. Posterior hip precautions x 6 weeks. 5) Keep dressing clean and dry until 2 weeks post-op, dressing may be removed at 2 weeks post-op or sooner if it becomes saturated inside. 6) F/u in office in 4-6 weeks for repeat xrays. Quality VTE Deep Vein Thrombosis/Pulmonary Embolism Present on Admission: No
--- NOTE | 2024-05-20 11:51 | CM.DPNOTE ---
Addendum entered by KENZIE Estrada 05/20/24 12:56: hospitalist gave two scripts for this LINE REPAIRER TOWER to give pt in his dcp. LINE REPAIRER TOWER placed them with discharge packet that nursing staff was reviewing with pt. SL Original Note: DCP note LINE REPAIRER TOWER reviewed EMR. Lengthy dcp process throughout the day. Per hospitalist, cleared medically to dc. Signed BLS transport form. LINE REPAIRER TOWER met with son Shen and pt in room. Pt orientedx2. Shen and pt in agreement to dc home with HH and CG support. Shen reports verbal understanding there may be a bill associated with BLS transport home. Shen/pt confirm preference is to go home. LINE REPAIRER TOWER coordinated with CG Denise. Confirms PCP is Shraddha Alford. Reports they have a kiersten and hospital bed at home. report the hospital bed was originally for spouse and is older and is hopeful to get a new hospital bed. has been in contact with Shraddha Rocío's office for new bed. Will be home to assist BLS getting pt into the house. In agreement with plan. LINE REPAIRER TOWER spoke with medical lab tech instructor from Shraddha Rocío's office, they plan to expedite new hospital bed to best of ability. per Erna at [facility], can accept pt. will follow up with Shen to schedule appts. f2f and order completed. SULAIMAN Albarran kindly agreed to send finalized dc information when completed. SULAIMAN albarran kindly agreed to assist in arranging BLS transport for home. Scheduled for 1300. ROLLER MAKER notified. LINE REPAIRER TOWER notified RN/provider. no POLST needed due to full code (confirmed by Shen by this LINE REPAIRER TOWER this morning). Placed transport form and FS in chart. P: transport home today via [facility] at 1300 to home in [facility] to follow. PCP team to work on hospital bed in home. CM team will continue to follow as needed KENZIE Estrada
--- NOTE | 2024-05-20 13:29 | PC.NURSE ---
Day shift: Left unit via BLS at approx 1325. He is going home today. He states I'm happy to be going home today and my family will be there to be with me. Has all personal belongings. New MD scripts and d/c paperwork are in Pt belongings. Carmine signed his own d/c paperwork today. It was went over with SHEILA Granados. Pt has all personal belongings as well.
== END 2024-05-20 13:32 | disposition home health service (06) | DRG 522 ==
LOC: ED 16:00 → AC 16:48
PROVIDERS: Orthopaedic Surgery Foot and Ankle Surgery; Admitting Provider Hospitalist; Emergency Provider Emergency Medicine; PCP Internal Medicine; Referring Provider Emergency Medicine; Visit Provider Hospitalist
PROC: 0SRS0JZ Replacement of Left Hip Joint, Femoral Surface with Synthetic Substitute, Open Approach (ICD-10-PCS; CPT 27125; principal; 2024-05-14 08:00)
DX: M80.052A Age-related osteoporosis with current pathological fracture, left femur, initial encounter for fracture (principal); F05 Delirium due to known physiological condition; I10 Essential (primary) hypertension; E78.5 Hyperlipidemia, unspecified; E03.9 Hypothyroidism, unspecified; M19.90 Unspecified osteoarthritis, unspecified site; R53.81 Other malaise; G31.84 Mild cognitive impairment of uncertain or unknown etiology; K59.00 Constipation, unspecified; D64.89 Other specified anemias; Z87.891 Personal history of nicotine dependence; Z95.2 Presence of prosthetic heart valve; Z99.3 Dependence on wheelchair; Z85.118 Personal history of other malignant neoplasm of bronchus and lung
CPT/HCPCS: 36415; 70470; 72170; 73502; 80048; 80053; 85014; 85018; 85025; 96374; 97162; 97166; 97530; 99284; C1776; A9270; C9290; J0171; J0330; J0690; J1100; J1171; J1650; J1885; J2270; J2704; J3010